=== PATIENT | female | born 1955 | race Caucasian/White ===

== ENCOUNTER 2020-03-10 02:29 | Outpatient (CLI) | payer MEDICARE, OTHER, SELFPAY ==
[2020-03-10 19:16] LABS: SARS-CoV-2 RNA PCR Negative
== END 2020-03-10 02:30 | disposition home or self-care (01) ==
LOC: ANHCOVIDDT 02:31
PROVIDERS: Visit Provider Obstetrics & Gynecology
DX: Z01.818 Encounter for other preprocedural examination (principal); Z20.828 Contact with and (suspected) exposure to other viral communicable diseases
CPT/HCPCS: 36415; 85014; 85018; 87635; C9803; U0003

== ENCOUNTER 2020-03-10 11:33 | Outpatient (CLI) | payer MEDICARE, OTHER, SELFPAY ==
[2020-03-10 11:59] LABS: Hematocrit 41.4 % (37.0-47.0); Hemoglobin 14.6 g/dL (12.0-15.0)
== END 2020-03-10 11:34 | disposition home or self-care (01) ==
PROVIDERS: Visit Provider Obstetrics & Gynecology
DX: Z01.818 Encounter for other preprocedural examination (principal); N95.0 Postmenopausal bleeding
CPT/HCPCS: 36415; 85014; 85018

== ENCOUNTER 2020-03-13 01:22 | Day surgery (SDC) | payer MEDICARE, OTHER, SELFPAY ==
[2020-03-09 13:14] VITALS: BMI 35.6
--- NOTE | 2020-03-11 10:12 | PM.IMHP ---
H&P: HPI History of Present Illness Date/Time: 03/11/20 10:12 Chief complaint: post menopausal bleeding Narrative: Rosetta Perez is a 65 year old female of the 65-year-old female admitted for hysteroscopy and dilatation and curettage. Karlee of the postmenopausal bleeding. She underwent ultrasound which showed small uterus with a was anterior fundal mass consistent with fibroid. There was some small fluid seen in the endometrial canal and she is thus a for pathologic diagnosis diagnosis. Risks and benefits were reviewed Review of Systems Review of Systems: All systems reviewed & are unremarkable except as noted in HPI and below PMFSH Social History Social History Smoking packs per day: 1 Smoking cigarettes per day: 20.0 Years smoked: 40 Smoking pack-years: 40.00 Smoking status: Former smoker Tobacco type: cigarettes Smoking end date: 04/10/13 Alcohol intake: current Drinks per week: 2 Substance use: current Substance use type: marijuana Other substance usage details: MARIJUANA ONCE A MONTH Spiritual care concerns: No Meds Home Medications and Allergies Home Medications Medication Instructions Recorded Confirmed Type alprazolam 0.25 mg PO PRN PRN 03/09/20 03/09/20 History cholecalciferol (vitamin D3) 125 mcg PO DAILY 03/09/20 03/09/20 History fluoxetine 20 mg PO QAM 03/09/20 03/09/20 History levothyroxine 50 mcg PO QAM 03/09/20 03/09/20 History melatonin 10 mg PO HS PRN 03/09/20 03/09/20 History metoprolol tartrate 50 mg PO BID 03/09/20 03/09/20 History olmesartan 20 mg PO QPM 03/09/20 03/09/20 History omeprazole 20 mg PO QAM 03/09/20 03/09/20 History rosuvastatin 10 mg PO QAM 03/09/20 03/09/20 History turmeric 2,000 mg PO QAM 03/09/20 03/09/20 History Allergies Allergy/AdvReac Type Severity Reaction Status Date / Time Penicillins Allergy Hives Verified 03/09/20 12:55 Exam Const: General: no acute distress Eyes: General: appearance normal, both eyes and all related structures Neck: Neck: supple and no JVD Thyroid: thyroid normal Resp: Effort & Inspection: normal respiratory effort Auscultation: clear to auscultation bilaterally Cardio: Rate: regular rate Rhythm: regular rhythm GI: Inspection: non-distended GI Palp: Yes Soft to palpation, No Tenderness to palpation present (GI) and No Guarding due to palpation present (GI) Auscultation: normal bowel sounds : General: Yes bladder normal to palpation External Female Exam: normal external appearance Speculum Exam - Vagina: normal vaginal discharge and No vaginal bleeding Speculum Exam - Cervix: nontender Bimanual exam- vagina & uterus: bladder normal to palpation and No Cervical tenderness present OB/external & speculum: No vaginal bleeding Skin: General skin exam: no rashes or lesions noted Extrem: General: normal to inspection and no edema Psych: Mental Status: mental status grossly normal Affect: normal affect Assessment and Plan Additional Plan No impression: Postmenopausal bleeding Plan: Hysteroscopy/ dilatation and curettage
--- NOTE | 2020-03-13 11:03 | WPDHPUPDATE1 ---
History and Physical Update Update Date/Time: 03/13/20 11:03 History and Physical has been reviewed, including an updated exam of the patient. There are NO changes in the patient's condition. Risks, benefits, and alternatives have been discussed and questions answered. Patient agrees to proceed with procedure.
[2020-03-13 11:40] VITALS: BP 150/89; PULSE 58; RESP 16; TEMP 36.3; O2SAT 99
[2020-03-13] MEDS: ACETAMINOPHEN 500 MG TABLET 1000 MG PO (11:45)
--- NOTE | 2020-03-13 12:01 | P.PNAN_ITS ---
Anes - Initial Pre Proc Eval Procedure: Operation Date: 03/13/20 13:30 Proposed Procedures p Hysteroscopy Dilation and Curettage - Aidan Buck MD Date/Time: 03/13/20 12:01 Surgeon: Aidan Buck MD Pre Op Diagnosis: post menopausal bleeding Patient Data Age: 65 Gender: F Height: 5 ft 2 in Weight: 88.8 kg Allergies Allergy/AdvReac Type Severity Reaction Status Date / Time Penicillins Allergy Hives Verified 03/09/20 12:55 Home Medications Medication Instructions Recorded Confirmed Type alprazolam 0.25 mg PO PRN PRN 03/09/20 03/09/20 History cholecalciferol (vitamin D3) 125 mcg PO DAILY 03/09/20 03/09/20 History fluoxetine 20 mg PO QAM 03/09/20 03/09/20 History levothyroxine 50 mcg PO QAM 03/09/20 03/09/20 History melatonin 10 mg PO HS PRN 03/09/20 03/09/20 History metoprolol tartrate 50 mg PO BID 03/09/20 03/09/20 History olmesartan 20 mg PO QPM 03/09/20 03/09/20 History omeprazole 20 mg PO QAM 03/09/20 03/09/20 History rosuvastatin 10 mg PO QAM 03/09/20 03/09/20 History turmeric 2,000 mg PO QAM 03/09/20 03/09/20 History hydrocodone-acetaminophen [Pierre Part] 1 tablet PO Q4H PRN #20 tablet 03/13/20 Rx Patient hx anesthesia problems: none Family hx anesthesia problems: none PMFSH Past Medical History Medical History Anxiety GERD (gastroesophageal reflux disease) Hyperlipidemia Hypertension Hypothyroid Social History Social History Smoking packs per day: 1 Smoking cigarettes per day: 20.0 Years smoked: 40 Smoking pack-years: 40.00 Smoking status: Former smoker Tobacco type: cigarettes Smoking end date: 04/10/13 Alcohol intake: current Drinks per week: 2 Substance use: current Substance use type: marijuana Other substance usage details: MARIJUANA ONCE A MONTH Living arrangements: with family Spiritual care concerns: No Anes - Eval Final PreProcedure Day of Procedure 03/13/20 12:01 Patient weight: obese Heart: regular rate and rhythm Lungs: decreased breath sounds Airway: Mallampati scale class II Neurological: alert and oriented Last oral intake: >/= 8 hours ASA classification: III Emergent: no Anesthetic plan: proceed Anesthesia type and monitoring: general GIVS and standard monitoring Informed Consent: The patient's anesthetic plan and its attendant risks and benefits were discussed with the patient/family/POA. Questions were solicited and answers provided to the satisfaction of the patient/family/POA.
[2020-03-13] MEDS: LACTATED RINGERS 1,000 ML 30 ML IV CONT (12:02)
[2020-03-13] MEDS: LIDOCAINE HCL 1% LOCAL INJ 10 ML VIAL INFILTRATE (13:41)
--- NOTE | 2020-03-13 13:56 | PM.PROC ---
Procedure Note - Detailed Date of procedure: 03/13/20 Pre-op diagnosis: post menopausal bleeding Surgeon: Aidan Buck MD Postop diagnosis: Postmenopausal bleeding/endometrial polyp Procedure: Hysteroscopy/dilatation curettage/polypectomy Anesthesia: L and a EBL: 5cc Findings: Small uterine polyp Complications: None Description of procedure: The patient was prepped draped in the normal sterile fashion placed in the dorsal lithotomy position. Under excellent LMA Anesthesia anterior lip of the cervix grasped with single-tooth tenaculum. Uterus sounded to 8cm. Serial dilatation with fragmented dilators performed followed by passage of the 5mm visualizing hysteroscope using normal saline as visualizing medium. A uterine polyp was seen and this was removed piecemeal. The uterus was scraped over the entire 360?. When no further tissue could be removed instruments were removed. All sponge, needle, instrument counts were correct. There were no immediate complications patient tolerated the procedure well
[2020-03-13 14:00] VITALS: BP 146/72; PULSE 62; RESP 14; O2SAT 93
--- NOTE | 2020-03-13 14:10 | SUR.OPER ---
Local on field and not injected as per Dr Peterson
[2020-03-13 14:30] VITALS: BP 166/72; PULSE 62; RESP 16; O2SAT 97
[2020-03-13 14:58] VITALS: BP 141/87; PULSE 58; RESP 17; O2SAT 97
[2020-03-13 15:20] VITALS: BP 158/78; PULSE 55; RESP 16; O2SAT 98
== END 2020-03-13 15:30 | disposition home or self-care (01) ==
PROVIDERS: Visit Provider Obstetrics & Gynecology
PROC: 0U5B8ZZ Destruction of Endometrium, Via Natural or Artificial Opening Endoscopic (ICD-10-PCS; CPT 58563; principal; 2020-03-13 13:30)
DX: N95.0 Postmenopausal bleeding (principal); N84.0 Polyp of corpus uteri; I10 Essential (primary) hypertension; E78.5 Hyperlipidemia, unspecified; E03.9 Hypothyroidism, unspecified; K21.9 Gastro-esophageal reflux disease without esophagitis; F41.9 Anxiety disorder, unspecified; Z87.891 Personal history of nicotine dependence; F12.90 Cannabis use, unspecified, uncomplicated; E66.9 Obesity, unspecified; Z68.35 Body mass index [BMI] 35.0-35.9, adult
CPT/HCPCS: 58558; 88305; 88342; A9270; J2250; J2405; J2704; J3010; J7030; J7120

== ENCOUNTER 2021-07-07 15:43 | Outpatient (CLI) | payer MEDICARE, OTHER, SELFPAY ==
--- NOTE | ~2021-07-07 | MM_ITS ---
EXAMINATION: MM screening [facility] BI w bailey HISTORY: Screening mammogram TECHNIQUE: Craniocaudal and mediolateral oblique 3-D tomosynthesis images were obtained and synthetic 2-D images were generated. CAD analysis was submitted and interpreted. COMPARISON: 12/12/2018 BREAST PARENCHYMAL COMPOSITION: There are scattered areas of fibroglandular density. FINDINGS: RIGHT BREAST: There is a possible mass in the middle third of the upper inner breast. LEFT BREAST: There is no suspicious mass, calcification, or architectural distortion to suggest malig marty. There has been no significant interval change. IMPRESSION: 1. Possible right breast mass. 2. Additional mammographic views and possible breast ultrasound are recommended. BI-RADS Category 0: Incomplete: Needs additional imaging evaluation. Reviewed, dictated and finalized at location A. IMPRESSION: 1. Possible right breast mass. 2. Additional mammographic views and possible breast ultrasound are recommended . BI-RADS Category 0: Incomplete: Needs additional imaging evaluation.
== END 2021-07-07 15:44 | disposition home or self-care (01) ==
LOC: ANHIMG 15:44
PROVIDERS: Visit Provider Obstetrics & Gynecology
DX: Z12.31 Encounter for screening mammogram for malignant neoplasm of breast (principal); R92.8 Other abnormal and inconclusive findings on diagnostic imaging of breast
CPT/HCPCS: 77063; 77067

== ENCOUNTER 2021-07-15 12:08 | Outpatient (CLI) | payer MEDICARE, OTHER, SELFPAY ==
--- NOTE | ~2021-07-15 | MMUS_ITS ---
EXAMINATION: MM diagnostic [facility] RT w bailey, US breast RT limited HISTORY: Follow-up right breast asymmetry TECHNIQUE: Additional 3-D tomosynthesis images of the right breast were performed and synthetic 2-D i mages were generated. CAD analysis was submitted and interpreted. High resolution Limited right breas t ultrasound was performed. COMPARISON: 07/07/2021 BREAST PARENCHYMAL COMPOSITION: Breast composed of scattered areas of fibroglandular density. FINDINGS: MAMMOGRAPHIC FINDINGS: Focal asymmetries in the upper inner quadrant of the right breast are less apparent with spot jaqueline kate views. No discrete mass or architectural distortion. No suspicious cluster of calcifications. ULTRASOUND: Limited right breast ultrasound: At 12:00 near the nipple there is a 3 mm cyst. At 12:00 near the nip ple there is a second 2 mm cyst. At 2:00, 6 cm from the nipple, there is an oval hyperechoic mass quinn suring 1.9 cm greatest dimension with internal cystic change, likely benign. There is parallel orient ation, no significant posterior features. IMPRESSION: 1. Probable benign findings of the right breast. 2. Recommend 6 month follow-up diagnostic right mammogram and ultrasound BI-RADS category 3, probably benign findings. Reviewed, dictated and finalized at location A. IMPRESSION: 1. Probable benign findings of the right breast. 2. Recommend 6 month follow-up diagnostic right mammogram and ultrasound BI-RADS category 3, probably benign findings.
== END 2021-07-15 12:09 | disposition home or self-care (01) ==
PROVIDERS: Visit Provider Obstetrics & Gynecology
DX: R92.8 Other abnormal and inconclusive findings on diagnostic imaging of breast (principal)
CPT/HCPCS: 76642; 77061; 77065; G0279

== ENCOUNTER 2022-02-15 11:48 | Outpatient (CLI) | payer MEDICARE, SELFPAY ==
--- NOTE | ~2022-02-15 | MMUS_ITS ---
EXAMINATION: MM diagnostic [facility] RT w bailey, US breast RT limited HISTORY: Six-month follow-up of probable benign mammographic and ultrasound findings of right breast noted on 07/15/2021 diagnostic right mammogram and limited right breast ultrasound TECHNIQUE: ML, MLO and craniocaudal 3-D tomosynthesis images of the right breast were performed and s ynthetic 2-D images were generated. CAD analysis was submitted and interpreted. High resolution targe angelo 12:00 and 2:00 right breast ultrasound was performed. COMPARISON: 07/15/2021 diagnostic right mammogram and limited right breast ultrasound 07/07/2021 and 12/2018 bilateral screening mammogram examinations BREAST PARENCHYMAL COMPOSITION: There are scattered areas of fibroglandular density. FINDINGS: MAMMOGRAPHIC FINDINGS: No suspicious mass or architectural distortion, malignant calcification, skin thickening or retractio n or significant new or developing density is detected. ULTRASOUND: No suspicious mass or shadowing, cyst or other significant sonographic finding is noted at 12:00 or 2 :00 IMPRESSION: 1. No mammographic evidence of malignancy 2. Routine annual mammographic screening is recommended BI-RADS Category 1: Negative Reviewed, dictated and finalized at location A. RS INSPECTOR IMPRESSION: 1. No mammographic evidence of malignancy 2. Routine annual mammographic screening is recommended BI-RADS Category 1: Negative
== END 2022-02-15 11:49 | disposition home or self-care (01) ==
PROVIDERS: Visit Provider Obstetrics & Gynecology
DX: R92.8 Other abnormal and inconclusive findings on diagnostic imaging of breast (principal)
CPT/HCPCS: 76642; 77061; 77065; G0279

== ENCOUNTER 2023-11-18 10:04 | Outpatient (CLI) | payer MEDICARE, SELFPAY ==
--- NOTE | ~2023-11-18 | MM_ITS ---
EXAMINATION: MM screening [facility] BI w bailey HISTORY: Screening TECHNIQUE: Craniocaudal and mediolateral oblique 3-D tomosynthesis images were obtained and synthetic 2-D images were generated. CAD analysis was submitted and interpreted. COMPARISON: Comparison to multiple prior studies sequentially, with oldest reviewed study dated 07/2018. BREAST PARENCHYMAL COMPOSITION: Not dense: There are scattered areas of fibroglandular density. FINDINGS: There is no evidence of suspicious mass, calcification, or architectural distortion to sugg est malignancy in either breast. There has been no suspicious interval change. IMPRESSION: 1. No mammographic evidence of malignancy. 2. Recommend routine screening mammography in one year. BI-RADS Category 1: Negative Reviewed, dictated and finalized at location B.
== END 2023-11-18 10:05 | disposition home or self-care (01) ==
PROVIDERS: PCP Physician Assistant; Visit Provider Obstetrics & Gynecology
DX: Z12.31 Encounter for screening mammogram for malignant neoplasm of breast (principal)
CPT/HCPCS: 77063; 77067

== ENCOUNTER 2024-03-12 12:36 | Outpatient (CLI) | payer MEDICARE, SELFPAY ==
--- NOTE | ~2024-03-12 | CT_ITS ---
EXAMINATION: CT lung screening DATE: 03/12/2024 13:04 INDICATION: Z87.891 - Personal history of nicotine dependence TECHNIQUE: Computed tomography (CT) of the chest was performed without intravenous contrast. Addition al 3D reconstructions utilizing coronal maximum intensity projection (MIP) were performed. Automated exposure control and iterative reconstruction technique were employed. The dose-length product was 16 3.92 mGy-cm. COMPARISON: None FINDINGS: Mild emphysema with mild right apical pleural-parenchymal scarring. There is a part solid nodule with 6 mm solid component and small amount of surrounding groundglass opacity measuring up to 1.2 cm in d iameter at the junction of the superior and anterior basilar segments of the right lower lobe. There is an additional 4 mm nodule with some adjacent groundglass opacity in the right upper lobe. There ar e a few additional scattered <4 mm nodules in both lungs. No pulmonary edema, pleural effusion or pne umothorax. Heart size is normal. No pericardial effusion. Thoracic aorta is normal in caliber. 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 No pathologically enlarged thoracic lympha denopathy. Visualized upper abdomen is unremarkable. Moderate to severe thoracic spondylosis. IMPRESSION: 1. Lung-RADS category 4A: (Suspicious, 5-15% chance of malignancy) recommend 3 month follow-up low-do se noncontrast chest CT. Reviewed, dictated and finalized at location A. LOGIST IMPRESSION: 1. Lung-RADS category 4A: (Suspicious, 5-15% chance of malignancy) recommend 3 month follow-up low-dose noncontrast chest CT.
== END 2024-03-12 12:37 | disposition home or self-care (01) ==
PROVIDERS: PCP Internal Medicine; Visit Provider Nurse Practitioner Family
DX: Z12.2 Encounter for screening for malignant neoplasm of respiratory organs (principal); Z87.891 Personal history of nicotine dependence; R91.8 Other nonspecific abnormal finding of lung field
CPT/HCPCS: 71271

== ENCOUNTER 2024-03-30 07:46 | Outpatient (CLI) | payer MEDICARE, SELFPAY ==
--- NOTE | ~2024-03-30 | MR_ITS ---
EXAMINATION: MR shoulder LT wo con DATE: 03/30/2024 08:48 INDICATION: Pain in left shoulder. TECHNIQUE: Magnetic resonance imaging (MRI) of the left shoulder was performed without intravenous co ntrast. Sequences included axial PD-weighted FS FSE, coronal oblique PD-weighted FS FSE and T2-weight ed FS FSE, and sagittal oblique T2-weighted FS FSE and T1-weighted FSE. COMPARISON: None. FINDINGS: Coracoacromial arch: The acromion undersurface is curved in morphology (type II). There is moderate acromioclavicular join t osteoarthritis including inferiorly directed osteophytes. There is mild subacromial/subdeltoid burs itis. Rotator cuff: There is mild supraspinatus and infraspinatus tendinopathy. There is mild teres minor tendinopathy. S ubscapularis tendon is normal. There is no asymmetric fatty atrophy of the rotator cuff muscle bellie s. Biceps tendon and glenoid labrum: Biceps tendon is in bicipital groove. Intra-articular biceps tendon is normal. There is degenerative tearing of the glenoid labrum. There are small paralabral cysts posterosuperiorly. Fluid: There is a small glenohumeral joint effusion. Bones/cartilage: There is partial-thickness cartilage loss of humeral head, deep at the posterior articular surface. T here is full-thickness cartilage loss of glenoid involving the central articular surface. Osteophytes are noted. There is a subchondral cyst in posterior glenoid. IMPRESSION: 1. Severe glenohumeral joint chondrosis. 2. Moderate acromioclavicular joint osteophytes. 3. Mild rotator cuff tendinopathy. No tear. 4. Small glenohumeral joint effusion. 5. Mild subacromial/subdeltoid bursitis. Reviewed, dictated and finalized at location A. LANCE RECRUITER
--- OUTSIDE RECORDS SUMMARY | 2024-04-06 05:23 | XMS_ITS | Referral Summary ---
Author Organization [facility] Address [address] [place] [address] Care Team Providers Care Program Evaluator Name Role Phone Unavailable Primary Care Provider Unavailabl e Source Comments [facility],non-owned Affiliates and Associated Physician Practices is amultiple site organization consisting of ambulatory clinics and hospital sitesin [place], [place], [place] and [place]. This disclosure is being madepursuant to the Care Everywhere program and may not contain all information available regarding this patient. Last updated 17.[facility] [employer] Social History Tobacco Use Types Packs/Day Years Used Date Smoking Tobacco: Never Assessed Sex and Gender Information Value Date Recorded Sex Assigned at Not on file Gender Identity Not on file Sexual Orientation Not on file Plan of Treatment Not on file
--- OUTSIDE RECORDS SUMMARY | 2024-04-06 05:23 | XMS_ITS | Continuity of Care Document ---
Author Organization [facility] Address [address] [place] [id number] Care Team Providers Care Behavioral Health Case Manager Name Role Phone Lisa Vazquez Primary Care Physician Encounter [facility] Financial Number [id number] Date(s): 01/11/21 - 01/11/[address] [id number] Discharge Disposition: Home or Self Care Attending Physician: Casimiro Wong DO Referring Physician: Lisa Vazquez MD Problem List Diagnosis Diagnosis Type Effective Dates Health Status Clinical Service Informant Encounter for other preprocedural examination 01/11/21 Non-Specified Encounter for other preprocedural examination 01/11/21 Non-Specified Results Laboratory List Name Date Basic Metabolic Profile 01/11/21 CBC without Differential 01/11/21 Most recent to oldest [Reference Range]: 1 BUN [7-17 mg/dL] 18 mg/dL *H* (01/11/21 2:24 PM) Calcium [8.4-10.2 mg/dL] 9.2 mg/dL (01/11/21 2:24 PM) Chloride [98-107 mmol/L] 101 mmol/L (01/11/21 2:24 PM) CO2 [22-30 mmol/L] 32 mmol/L *H* (01/11/21 2:24 PM) Glucose [74-106 mg/dL] 116 mg/dL *H* (01/11/21 2:24 PM) Potassium [3.5-4.9 mmol/L] 4.0 mmol/L (01/11/21 2:24 PM) Sodium [137-145 mmol/L] 140 mmol/L (01/11/21 2:24 PM) Hematocrit [36.0-54.0 %] 38.0 % (01/11/21 2:24 PM) MCHC [32-37 g/dL] 35 g/dL (01/11/21 2:24 PM) MCH [28.0-34.0 pg] 33.2 pg (01/11/21 2:24 PM) MCV [80.0-100.0 fL] 94.3 fL (01/11/21 2:24 PM) MPV [0.0-9.0 fL] 7.4 fL (01/11/21 2:24 PM) Platelet [150-440 x10E3/uL] 261 x10E3/uL (01/11/21 2:24 PM) RBC [4.00-6.00 x10E6/uL] 4.03 x10E6/uL (01/11/21 2:24 PM) RDW [11.5-16.0 %] 12.5 % (01/11/21 2:24 PM) WBC [4.0-11.0 x10E3/uL] 4.9 x10E3/uL (01/11/21 2:24 PM) Creatinine [0.5-1.0 mg/dL] 0.8 mg/dL (01/11/21 2:24 PM) Hemoglobin [12.0-18.0 g/dL] 13.4 g/dL (01/11/21 2:24 PM) eGFR(4vMDRD) [>=60 mL/min/1.73m2] >60 mL /min/1.73m2 (01/11/21 2:24 PM) eCrCl(C-Gault) 1.1 mL/min/kg (01/11/21 2:24 PM) Anion Gap [7-16 mmol/L] 7 mmol/L (01/11/21 2:24 PM)
--- OUTSIDE RECORDS SUMMARY | 2024-04-06 05:23 | XMS_ITS | Patient Health Summary ---
Author Organization [facility] Address [address] [place] [address] Care Team Providers Care Spark Plug Assembler Name Role Phone Unavailable Primary Care Provider Unavailabl e Note from [facility],non-owned Affiliates and Associated Physician Practices is amultiple site organization consisting of ambulatory clinics and hospital sitesin [place], [place], [place] and [place]. This disclosure is being madepursuant to the Care Everywhere program and may not contain all information available regarding this patient. Last updated 17.[facility] Social History Tobacco Use Types Packs/Day Years Used Date Smoking Tobacco: Never Assessed Sex and Gender Information Value Date Recorded Sex Assigned at Not on file Gender Identity Not on file Sexual Orientation Not on file Procedures * DERMATOPATHOLOGY(Performed 08/25/2020) Results * DERMATOPATHOLOGY (08/25/2020 3:33 AM CDT) Case Report Dermatopathology Report ? Case: [id number] ? Authorizing Provider: ??Freya Rosa MD ? Collected: ? 08/25/2020 03:33 AM ? Ordering Location: ? [facility] Care DermPath Lab ?Received: ?08/27/2020 06:08 AM ? Pathologist: ? Rissa Chavis MD ? Specimen: ?Skin, right judaism ? 4:11 PM T DERMATOPATHOLOGY LABORATORY Final Diagnosis Specimen A. SKIN, right judaism: BENIGN VERRUCOUS KERATOSIS, INFLAMED (L82.1) 4:11 PM T DERMATOPATHOLOGY LABORATORY Clinical History HAK R/O SCC. 4:11 PM T DERMATOPATHOLOGY LABORATORY Gross Description Specimen A: Received is one formalin filled container labeled with the patient's name and designated right judaism. The specimen consists of a shave biopsy measuring [id number]. Jar 0. 4:11 PM T DERMATOPATHOLOGY LABORATORY Microscopic Description Specimen A. SKIN, right judaism: Sections show hyperkeratosis, papillomatosis, hypergranulosis, and acanthosis. Inflammatory cells are present within the dermis. These histological findings can be seen in a verruca vulgaris or a seborrheic keratosis. 4:11 PM T DERMATOPATHOLOGY LABORATORY Disclaimer An external and internal positive and negative controls are appropriate for the histochemical, immunohistochemical and immunofluorescence stain(s) in this case (if any), except where stated explicitly. The performance characteristics of the stain(s) cited in this report were developed and its performance characteristic determined by the Dermatopathology Laboratory at [facility], directed by Dr. Houston Easton. These tests need not be, and therefore are not, approved by the [place] Food and Drug Administration. The tests are used for clinical purposes. Billing Codes Specimen Charges Stain Charges 47072 1 4:11 PM CDT DERMATOPATHOLOGY LABORATORY Embedded Images 4:11 PM T DERMATOPATHOLOGY LABORATORY Pathology/Cytolo gy TISSUE SPECIMEN FROM SKIN / Unknown 08/25/2020 3:33 AM CDT 08/27/2020 6:08 AM CDT Freya Rosa MD LAB - PATHOLOGY/CYTO LOGY ORDERABLES DERMATOPATHOLOGY LABORATORY [facility] - Department of Dermatology [facility] [address] [place] [address], [address] [phone]
--- OUTSIDE RECORDS SUMMARY | 2024-04-06 05:23 | XMS_ITS | Clinical Summary ---
Author Organization [facility] [employer] Address [address] [place] [address] Care Team Providers Care Scraper Burrer Name Role Phone Unavailable Primary Care Provider Unavailabl e Source Comments [facility] [employer],non-owned Affiliates and Associated Physician Practices is amultiple site organization consisting of ambulatory clinics and hospital sitesin [place], [place], [place] and [place]. This disclosure is being madepursuant to the Care Everywhere program and may not contain all information available regarding this patient. Last updated 17.[facility] [employer] Social History Tobacco Use Types Packs/Day Years Used Date Smoking Tobacco: Never Assessed Sex and Gender Information Value Date Recorded Sex Assigned at Not on file Gender Identity Not on file Sexual Orientation Not on file Plan of Treatment Health Maintenance Due Date Last Done Comments BONE DENSITY TESTING 1957 COLOGUARD (AGES 45-75) - COL ON CA SCREENING 1957 COLON MONITORING 1957 COLONOSCOPY - COLON CA SCREENING 1957 CT COLONOGRAPHY - COLON CA SCREENING 1957 Colorectal Cancer Screening 1957 FIT - COLON CA SCREENING 1957 FLEX SIG - COLON CA SCREENING 1957 LIPID TESTING 1957 MAMMOGRAM 1957 MEDICARE AWV ? 12 MONTHS 1957 HEPATITIS C SCREENING 12/30/1974 DTAP/TDAP/TD VACCINES (1 - Tdap) 01/04/1976 ZOSTER VACCINE (1 of 2) 2007 PNEUMOCOCCAL VACCINE 65+ (1 of 1 - PCV) 2022 DEPRESSION SCREENING 04/10/2023 COVID-19 VACCINE (1 - 2023-2 5 season) 2023 INFLUENZA VACCINE (#1) 2023 Respiratory Syncytial Virus (RSV) Vaccine Pt: or over 60 yrs (1 - 1-dose 75+ series) 01/04/2032 HEPATITIS B VACCINE Aged Out No longe r eligible based on patient's age to complete this topic HIB VACCINE Aged Out No longer eligi ble based on patient's age to complete this topic HPV VACCINE Aged Out No longer eligi ble based on patient's age to complete this topic MENINGOCOCCAL VACCINE Aged Out No debi karen eligible based on patient's age to complete this topic
--- OUTSIDE RECORDS SUMMARY | 2024-04-06 05:23 | XMS_ITS | Encounter Summary ---
Author Organization [facility] Address [address] [facility] [place] [address] Care Team Providers Care Wind Turbine Technician Name Role Phone Unavailable Primary Care Provider Unavailabl e Encounter Details Date Type Department Care Team (Late st Contact Info) Description 08/27/2020 Lab Requisition [facility] [address] [place] [address] [place] [id number] [facility] [address] [place] [address] Social History Tobacco Use Types Packs/Day Years Used Date Smoking Tobacco: Never Assessed Sex and Gender Information Value Date Recorded Sex Assigned at Not on file Gender Identity Not on file Sexual Orientation Not on file documented as of this encounter Plan of Treatment Not on file documented as of this encounter Procedures Procedure Name Priority Date/Time Associated Diagnosis Comments DERMATOPATHOLOGY Routine 08/25/2020 3:33 AM CDT documented in this encounter Results * DERMATOPATHOLOGY (08/25/2020 3:33 AM CDT) Case Report Dermatopathology Report ? Case: [id number] ? Authorizing Provider: ??Freya Rosa MD ? Collected: ? 08/25/2020 03:33 AM ? Ordering Location: ? [facility] ?Received: ?08/27/2020 06:08 AM ? Pathologist: ? Rissa Chavis MD ? Specimen: ?Skin, right scientologist ? 4:11 PM [facility] DERMATOPATHOLOGY LABORATORY Final Diagnosis Specimen A. SKIN, right scientologist: BENIGN VERRUCOUS KERATOSIS, INFLAMED (L82.1) 4:11 PM [facility] Clinical History HAK R/O SCC. 4:11 PM [facility] Gross Description Specimen A: Received is one formalin filled container labeled with the patient's name and designated right scientologist. The specimen consists of a shave biopsy measuring [id number]. Jar 0. 4:11 PM [facility] Microscopic Description Specimen A. SKIN, right scientologist: Sections show hyperkeratosis, papillomatosis, hypergranulosis, and acanthosis. [...] characteristic determined by the Dermatopathology Laboratory at [facility], directed by Dr. Houston Easton. These tests need not be, and therefore are not, approved by the [place] Food and Drug Administration. The tests are used for clinical purposes. Billing Codes Specimen Charges Stain Charges 24861 1 1 4:11 PM CDT DERMATOPATHOLOGY LABORATORY Embedded Images 1 4:11 PM CDT DERMATOPATHOLOGY LABORATORY Pathology/Cytolo gy TISSUE SPECIMEN FROM SKIN / Unknown 08/25/2020 3:33 AM CDT 08/27/2020 6:08 AM CDT Freya Rosa MD LAB - PATHOLOGY/CYTO LOGY ORDERABLES DERMATOPATHOLOGY LABORATORY [facility] D[facility]at[facility] Medicine [address] [place] [address], [address] [phone] documented in this encounter Visit Diagnoses Not on filedocumented in this encounter
--- OUTSIDE RECORDS SUMMARY | 2024-04-06 05:24 | XMS_ITS | Continuity of Care Document ---
Author Organization [employer] Address [address] [place] [address] Phone Care Team Providers Care Scrap Yard Worker Name Role Phone Lisa Vazquez MD Unavailable Unavailable Allergies, Adverse Reactions, Alerts Substance Reaction Status Criticality rosuvastatin Myalgias Active No Information simvastatin Myalgias Active No Information PENICILLIN Hives / Skin Rash Active No Informa tion Medications Medication Instructions Dosage Effective Dates (start - stop) Status Comments HYDROCHLOROTHIAZIDE 25 MG TAB TAKE 1/2 TABLET BY MOUTH EVERY EVENING - Active LEVOTHYROXINE 50 MCG TABLET TAKE 1 TABLET BY MOUTH EVERY DAY - Active METOPROLOL TARTRATE 50 MG TAB TAKE 1 TABLET BY MOUTH TWICE A DAY - Active OMEPRAZOLE DR 20 MG CAPSULE TAKE 1 CAPSULE BY MOUTH EVERY DAY - Active OLMESARTAN MEDOXOMIL 20 MG TAB TAKE 1 TABLET BY MOUTH EVERY DAY - Active FLUOXETINE HCL 40 MG CAPSULE TAKE 1 CAPSULE BY MOUTH EVERY DAY IN THE MORNING - Active alprazolam 0.25 mg tablet TAKE ONE TABLE T BY MOUTH DAILY NEEDED - Active Nasal Allergy 55 mcg spray aerosol spray 2 spray by intranasal route every day in each nostril 110 MCG - Active Zyrtec 10 mg tablet take 1 tablet by oral route every day 10 MG - Active melatonin 10 mg capsule as needed - Ac tive Probiotic 10 billion cell capsule - Active cyclobenzaprine 10 mg tablet take 1 tablet by oral route every day as needed for muscle spasm - Active Lactaid 3,000 unit tablet as needed - Active Vitamin D3 2,000 unit capsule take 1 capsule by oral route every evening for 60 days 1 capsule - Active Caltrate 600 + D 600 mg (1,500 mg)-800 unit chewable tablet - Active Procedures Procedure Date FALL RISK ASSESSMENT DOC'D PRES/ABSN URINE INCON ASSESS PPPS, subseq visit OFFICE [id number] BODY MASS INDEX DOCD SYST BP GE 130 - 139MM HG DIAST BP < 80 MM HG Kept Appointment No Charge Encounter August SARS-CoV-2/Flu/RSV (all targets) 2021 COVID, Flu A, Flu B X-RAY EXAM OF THORACIC SPINE, A/P & LAT, INCL SWIMMERS VIEW COMPREHEN METABOLIC PANEL CMP 2 ROUTINE VENIPUNCTURE Admin influenza virus vac FLU VACC PRSV FREE INC ANTIG Pt inelig neg scrn depres OFFICE [id number] BODY MASS INDEX DOCD SYST BP LT 130 MM HG DIAST BP < 80 MM HG OFFICE [id number] FALL RISK ASSESSMENT DOC'D PRES/ABSN URINE INCON ASSESS Pt inelig neg scrn depres CBC, INC PLATELETS AND DIFFERENTIAL COMPREHEN METABOLIC PANEL CMP LIPID PANEL THYROID STIMULATION HORMONE(TSH) 2021 VITAMIN D, 25-HYDROXY URINALYSIS, DIPSTICK (UA) - Office Lab M ROUTINE VENIPUNCTURE OFFICE [id number] SYST BP LT 130 MM HG DIAST BP < 80 MM HG Pt inelig neg scrn deprlucero FALL RISK ASSESSMENT DOC'D PRES/ABSN URINE INCON ASSESS PPPS, initial visit SYST BP LT 130 MM HG DIAST BP < 80 MM HG OFFICE [id number] SYST BP LT 130 MM HG DIAST BP < 80 MM HG OFFICE [id number] SYST BP LT 130 MM HG DIAST BP < 80 MM HG Pt inelig neg scrn nohelia TELEPHONE E&M BY A PHYSICIAN; 02-27 TRACIE JAMES TELEPHONE E&M SERVICE BY A PHYSICIAN;5-1 0 MINUTES OF MEDICAL DISCUSSION Brief Emotional/Behavioral A ssessment, With Scoring/Doct, Per Stndrd Instrument Depression screen annual Pt inelig neg scrn deprlucero OFFICE [id number] SYST BP LT 130 MM HG DIAST BP < 80 MM HG TELEPHONE E&M BY A PHYSICIAN; 02-27 TRACIE JAMES SYST BP LT 130 MM HG DIAST BP < 80 MM HG TELEPHONE E&M BY A PHYSICIAN; 02-27 TRACIE JAMES SYST BP >= 140 MM HG6 IT DIAST BP 80-89 MM HG Pt inelig neg scrn depres OFFICE [id number] SYST BP >= 140 MM HG6 IT DIAST BP >= 90 MM HG Admin influenza virus vac FLU VACC 4 GRAHAM 0.5mL DOSAGE OFFICE [id number] SYST BP GE 130 - 139MM HG DIAST BP < 80 MM HG OFFICE [id number] SYST BP >= 140 MM HG6 IT DIAST BP >= 90 MM HG EKG (ELECTROCARDIOGRAM) Pt inelig neg scrn depres COMPREHEN METABOLIC PANEL CMP 0 RHEUMATOID FACTOR: QN RBC SED RATE, AUTOMATED ROUTINE VENIPUNCTURE OFFICE [id number] SYST BP GE 130 - 139MM HG DIAST BP 80-89 MM HG Pt inelig neg scrn depres THYROID STIMULATION HORMONE(TSH) 2018 ROUTINE VENIPUNCTURE DESTRUCT BENIGN LESIONS OTHE R THAN SKIN TAGS OR CUTANEOUS VASCULAR LESIONS UP TO OFFICE [id number] SYST BP GE 130 - 139MM HG DIAST BP 80-89 MM HG Advance Directives Directive Yes / No Effective Date File Name No Information Encounters Encounter Description Practice Location Reason(s) For Visit Diagnoses Date Provider Providers Copied on Encounter [employer], [id number] [place] [address], [address] [place] [address] , tel: [phone] [facility] No Information 4 Taylor Lisa. [address] [place] [address], [id number] , . tel: [phone] [employer], [address], [place], [address] , tel: [phone] [facility] No Information 0 3 Taylor Lisa. [address], [id number] , [place]. tel: [phone] [employer], [address] [place] [address], [id number] , tel: [phone] [facility] No Information Nov0 3 Taylor Lisa. [address], [id number] , . tel: [phone] [employer], [address], [place], [place], [address] , tel: [phone] [facility] No Information 4 3 Taylor Lisa. [address] [place] [address], [id number] , . tel: [phone] [employer], [address], [place], [place], [address] , tel: [phone] [facility] No Information 2 3 Taylor Lisa. [address] [place] [address], [id number] , . tel: [phone] [employer], [address] [facility], [place], [place], [id number] , tel: [phone] [facility] No Information 3 Taylor Lisa. [address] [place] [address], [address] [place] [address] , . tel: [phone] [employer], [address] [facility], [place], [place], [id number] , tel: [phone] [facility] No Information 0 - 3 Taylor Lisa. [address] [place] [address], [id number] , . tel: [phone] [employer], [address] [facility], [place], [place], [address] , tel: [phone] [facility] No Information 0 2 3 Taylor Lisa. [address] [place] [address], [id number] , . tel: [phone] OFFICE CVUMK-OXE-VS TAILED [employer], [address] [facility], [place], [place], [address] , tel: [phone] [facility] HPI (chief complaint)M edicare preventive (chief complaint) Body mass index [BMI] 35.0-35.9, adultHyperlipidemi a, unspecified hyperlipidemia typeHypothyroidism , unspecified typeOSA (obstructive sleep apnea)Primary osteoarthritis, unspecified siteParoxysmal SVT (supraventricular tachycardia)Gastro esophageal reflux disease without esophagitisOsteope macy, unspecified locationEssential hypertensionAnxiet yHypovitaminosis DIrritable bowel syndrome with both constipation and diarrheaMedicare annual wellness visit, subsequentObesity (BMI 30-39.9)History of colon polyps 3 Taylor Gonzalez. [address] [place] [address], [address] [place] [address] , . tel: [phone] Referring Provider: Lisa Vazquez, [address] [place] [address], [address] [place] [address] . tel:[phone] [facility] [employer], [address] [place] [address], [address] [place] [address] , tel: [phone] [facility] No Information 3 Taylor Gonzalez. [address] [place] [address], [address] [place] [address] , . tel: [phone] [employer], [address], [place], [id number] , tel: [phone] [facility] No Information 2 Taylor Gonzalez. [address] [place] [address], [address], [address] [place] [address] , . tel: [phone] Referring Provider: Lisa Vazquez, [address] [place] [address], [address] [place] [address] . tel:[phone] [employer], [address] [place] [address], [id number] , tel: [phone] [facility] Acute cough 2 Taylor Gonzalez. [address] [place] [address], [address] [place] [address] , . tel: [phone] Referring Provider: Lisa Vazquez, [address] [place] [address], [address] [place] [address] . tel:[phone] [facility], [address], [place], [place], [id number] , tel: [phone] [facility] No Information 2 Taylor Gonzalez. [address] [facility], [address], [id number] , . tel: [phone] [facility], [address], [place], [place], [address] , tel: [phone] [facility] Dorsalgia, unspecifiedEssenti al (primary) hypertension 2 Taylor Gonzalez. [address] [place] [address], [address], [id number] , . tel: [phone] Referring Provider: Lisa Vazquez, [address] [place] [address], [address] . tel:[phone] OFFICE IQBKZ-QID-OV TAILED [facility], [address], [place], [place], [address] , tel: [phone] [facility] hpi (chief complaint) Chronic upper back painOther chronic painEssential hypertensionHyperl ipidemia, unspecified hyperlipidemia typeLeg crampsAnxietyGastr oesophageal reflux disease without esophagitisOsteope macy, unspecified locationParoxysmal SVT (supraventricular tachycardia)Hypoth yroidism, unspecified typeObesity (BMI 30-39.9)Primary osteoarthritis, unspecified siteOSA (obstructive sleep apnea)Body mass index [BMI] 36.0-36.9, adult 2 Taylor Gonzalez. [address] [place] [address], [address], [id number] , . tel: [phone] Referring Provider: Lisa Vazquez, [address] [place] [address], [address] . tel:[phone] OFFICE WBHHS-QEI-XT PANDED [facility], [address] [place] [address], [id number] , tel: [phone] [facility] (chief complaint) Body mass index [BMI] 35.0-35.9, adultAnxietyEssent ial hypertensionGastro esophageal reflux disease without esophagitisPrimary osteoarthritis, unspecified site 2 Taylor Gonzalez. [address] [place] [address], [address], [id number] , . tel: [phone] Referring Provider: Lisa Vazquez, [address] [place] [address], [address] . tel:[phone] [facility] [employer], [address], [place], [place], [address] , [place] tel: [phone] [facility] No Information 2 Taylor Gonzalez. [address] [place] [address], [address], [id number] , . tel: [phone] OFFICE LWQDN-GOT-RJ TAILED [facility], [address] [place] [address], [id number] , tel: [phone] [facility] hpi (chief complaint) Body mass index [BMI] 35.0-35.9, adultEssential hypertensionHyperl ipidemia, unspecified hyperlipidemia typeHypovitaminosi s DHypothyroidism, unspecified typeObesity (BMI 30-39.9)AnxietyOSA (obstructive sleep apnea)Gastroesopha geal reflux disease without esophagitisPrimary osteoarthritis, unspecified siteIrritable bowel syndrome with both constipation and diarrheaOsteopenia , unspecified locationParoxysmal SVT (supraventricular tachycardia)Histor y of colon polyps 2 Taylor Gonzalez. [address] [place] [address], [address], [id number] , [place]. tel: [phone] Referring Provider: Lisa Vazquez, [address] [place] [address], [address] . tel:[phone] [employer], [address], [place], [place], [address] , tel: [phone] [facility] Medicare preventive (chief complaint)M edical management (chief complaint) Body mass index [BMI] 37.0-37.9, adultMedicare annual wellness visit, initialHypothyroid ism, unspecified typeHyperlipidemia , unspecified hyperlipidemia typeAnxietyOSA (obstructive sleep apnea)Essential hypertensionGastro esophageal reflux disease without esophagitisObesity (BMI 30-39.9)Primary osteoarthritis, unspecified site 1 Taylor Gonzalez. [address] [place] [address], [address], [id number] , . tel: [phone] Referring Provider: Lisa Vazquez, [address] [place] [address], [address] . tel:[phone] OFFICE RXGDG-HUU-EK [facility], [address], [place], [place], [address] , tel: [phone] [facility] Medical Management (chief complaint) Body mass index [BMI] 36.0-36.9, adultPre-operative clearanceChronic pain of right kneeOther chronic painHypothyroidism , unspecified typeObesity (BMI 30-39.9)Hyperlipid emia, unspecified hyperlipidemia typeAnxietyEssenti al hypertensionOSA (obstructive sleep apnea)Gastroesopha geal reflux disease without esophagitis 1 Taylor Gonzalez. [address] [place] [address], [address], [id number] , . tel: [phone] Referring Provider: Lisa Vazquez, [address] [place] [address], [address] . tel:[phone] [employer], [address], [place], [place], [address] , tel: [phone] [facility] No Information 1 Taylor Gonzalez. [address] [place] [address], [address], [id number] , . tel: [phone] OFFICE VAXVH-WDR-UR [facility] [employer], [address], [place], [place], [address] , tel: [phone] [facility] Medical Management (chief complaint) Body mass index (BMI) 35.0-35.9, adultEssential hypertensionHyperl ipidemia, unspecified hyperlipidemia typeGastroesophage al reflux disease without esophagitisIrritab le bowel syndrome with both constipation and diarrheaPrimary osteoarthritis, unspecified siteHypothyroidism , unspecified typeAnxietyOSA (obstructive sleep apnea)Obesity (BMI 30-39.9) 1 Taylor Gonzalez. [address] [place] [address], [address], [id number] , . tel:[phone] Referring Provider: Lisa Vazquez, [address] [place] [address], [address] . tel:[phone] TELEPHONE E&M BY A PHYSICIAN; 11-20 MINUTES [employer], [address], [place], [address] , tel:[phone] [facility] (chief complaint) Body mass index (BMI) 36.0-36.9, adultEssential hypertensionObesit y (BMI 30-39.9)Hyperlipid emia, unspecified hyperlipidemia typeAnxietyGastroe sophageal reflux disease without esophagitisIrritab le bowel syndrome with both constipation and diarrheaPrimary osteoarthritis, unspecified siteSnoring 1 Taylor Gonzalez. [address] [place] [address], [address], [id number] , . tel:[phone] Referring Provider: Lisa Vazquez, [address] [place] [address], [address] . tel:[phone] TELEPHONE E&M SERVICE BY A PHYSICIAN;5- 10 MINUTES OF MEDICAL DISCUSSION [employer], [address], [place], [place], [address] , tel:[phone] [facility] (chief complaint) Body mass index (BMI) 36.0-36.9, adultDiarrhea, unspecified typeEssential hypertension 1 Taylor Gonzalez. [address] [place] [address], [address], [id number] , . tel:[phone] Referring Provider: Lisa Vazquez, [address] [place] [address], [address] . tel:[phone] OFFICE [facility]VB[facility]SYM[facility], [address], [place], [place], [address] , tel: [phone] [facility] Medical Management (chief complaint) Body mass index (BMI) 36.0-36.9, adultEssential hypertensionHyperl ipidemia, unspecified hyperlipidemia typeObesity (BMI 30-39.9)AnxietyHyp ovitaminosis DHypothyroidism, unspecified typeParoxysmal SVT (supraventricular tachycardia)Gastro esophageal reflux disease without esophagitisIrritab le bowel syndrome with both constipation and diarrheaOsteopenia , unspecified locationPrimary osteoarthritis, unspecified siteSnoring 1 Taylor Gonzalez. [address] [place] [address], [address], [id number] , . tel:[phone] Referring Provider: Lisa Vazquez, [address] [place] [address], [address] . tel:[phone] TELEPHONE E&M BY A PHYSICIAN; 11-20 MINUTES [employer], [address], [place], [place], [address] , tel: [phone] [facility] (chief complaint) Body mass index (BMI) 36.0-36.9, adultEssential hypertensionObesit y (BMI 30-39.9) 1 Taylor Gonzalez. [address] [facility], [address], [id number] , . tel:[phone] Referring Provider: Lisa Vazquez, [address] [place] [address], [address] . tel:[phone] TELEPHONE E&M BY A PHYSICIAN; 11-20 MINUTES [facility] [employer], [address], [place], [place], [address] , tel:[phone] [facility] Telehealth (chief complaint) Body mass index (BMI) 36.0-36.9, adultEssential hypertensionAnxiet yDizzinessObesity (BMI 30-39.9) 1 Taylor Gonzalez. [address] [place] [address], [id number] , . tel: [phone] Referring Provider: Lisa Vazquez, [address] [place] [address], [address] . tel:[phone] OFFICE QHTIV-KCH-SRUP[facility], [address] [place] [address], [id number] , tel: [phone] [facility] Medical Management (chief complaint) Body mass index (BMI) 36.0-36.9, adultHypothyroidis m, unspecified typeHypovitaminosi s DObesity (BMI 30-39.9)Hyperlipid emia, unspecified hyperlipidemia typeAnxietyEssenti al hypertensionParoxy smal SVT (supraventricular tachycardia)Gastro esophageal reflux disease without esophagitisIrritab le bowel syndrome with both constipation and diarrheaOsteopenia , unspecified locationHistory of colon polypsPrimary osteoarthritis, unspecified site 1 Taylor Gonzalez. [address] [place] [address], [id number] , . tel: [phone] Referring Provider: Lisa Vazquez, [address] [place] [address], [address] . tel:[phone] [facility], [address], [place], [place], [address] , tel: [phone] [facility] Medical Management (chief complaint) Body mass index (BMI) 35.0-35.9, adultEssential hypertensionHyperl ipidemia, unspecified hyperlipidemia typeObesity (BMI 30-39.9)Paroxysmal SVT (supraventricular tachycardia)Chroni c pain of right kneeHypothyroidism , unspecified typeHypovitaminosi s DOther chronic painAnxietyGastroe sophageal reflux disease without esophagitisIrritab le bowel syndrome with both constipation and diarrheaHistory of colon polypsOsteopenia, unspecified location Dec- 0 Taylor Gonzalez. [address] [place] [address], [id number] , . tel: [phone] Referring Provider: Lisa Vazquez, [address] [place] [address], [address] [place] [address] . tel:[phone] OFFICE BFKHW-JZL-SC [facility] [employer], [address], [place], [place], [address] , tel: [phone] [facility] Medical Management (chief complaint) Body mass index (BMI) 34.0-34.9, adultDizzinessHype rlipidemia, unspecified hyperlipidemia typeHypothyroidism , unspecified typeObesity (BMI 30-39.9)Essential hypertensionParoxy smal SVT (supraventricular tachycardia)Chroni c pain of right kneeOther chronic pain Dec- 0 Taylor Gonzalez. [address] [place] [address], [address] [place] [address] , . tel: [phone] Referring Provider: Lisa Vazquez, [address] [place] [address], [address] [place] [address] . tel:[phone] [employer], [address], [place], [place], [address] , tel: [phone] [facility] Elevated liver function tests 0 Taylor Gonzalez. [address] [place] [address], [id number] , [place]. tel: [phone] [employer], [address], [place], [place], [address] , tel: [phone] [facility] No Information 0 Taylor Gonzalez. [address] [place] [address], [id number] , . tel: [phone] OFFICE TKUAK-JFO-DL TAILED [employer], [address], [place], [place], [address] , [place] tel: [phone] [facility] Medical Management (chief complaint) Body mass index (BMI) 35.0-35.9, adultHyperlipidemi a, unspecified hyperlipidemia typeArthralgia, unspecified jointHypothyroidis m, unspecified typeHypovitaminosi s DAnxietyEssential hypertensionParoxy smal SVT (supraventricular tachycardia)Allerg ic rhinitis, cause unspecifiedIrritab le bowel syndrome with both constipation and diarrheaPrimary osteoarthritis, unspecified siteOsteopenia, unspecified locationGastroesop hageal reflux disease without esophagitisObesity (BMI 30-39.9) 2- 0 Taylor Gonzalez. [address] [place] [address], [id number] , . tel: [phone] Referring Provider: Lisa Vazquez, [address] [place] [address], [address] . tel:[phone] OFFICE LULTA-KCH-GI TAILED [facility], [address], [place], [place], [address] , tel: [phone] [facility] Medical Management (chief complaint) Body mass index (BMI) 34.0-34.9, adultHypothyroidis m, unspecified typeHypovitaminosi s DHyperlipidemia, unspecified hyperlipidemia typeAnxietyObesity (BMI 30.0-34.9)Essentia l hypertensionGastro esophageal reflux disease without esophagitisIrritab le bowel syndrome with both constipation and diarrheaAllergic rhinitis, cause unspecifiedHistory of colon polypsParoxysmal SVT (supraventricular tachycardia)Osteop enia, unspecified locationPrimary osteoarthritis, unspecified siteLactose intoleranceSkin lesion of right arm 201 9 Taylor Gonzalez. [address] [place] [address], [address], [id number] , . tel: [phone] Referring Provider: Lisa Vazquez, [address] [place] [address], [address] . tel:[phone] [facility], [address], [place], [address] , tel: [phone] [facility] Body mass index (BMI) 34.0-34.9, adultHypothyroidis m, unspecified typeHypovitaminosi s DObesity (BMI 30.0-34.9)Hyperlip idemia, unspecified hyperlipidemia typeAnxietyParoxys mal SVT (supraventricular tachycardia)Allerg ic rhinitis, cause unspecifiedGastroe sophageal reflux disease without esophagitisPrimary osteoarthritis, unspecified siteOsteopenia, unspecified locationSnoringEss ential hypertensionHistor y of colon polypsIrritable bowel syndrome with both constipation and diarrhea 9 Taylor Gonzalez. [address] [place] [address], [id number] , . tel: [phone] Referring Provider: Lisa Vazquez, [address] [place] [address], [address] . tel:[phone] [employer], [address] [place] [address], [id number] , tel: [phone] [facility] Body mass index (BMI) 34.0-34.9, adultHypothyroidis m, unspecified typeHypovitaminosi s DObesity (BMI 30.0-34.9)Hyperlip idemia, unspecified hyperlipidemia typeAnxietyParoxys mal SVT (supraventricular tachycardia)Allerg ic rhinitis, cause unspecifiedGastroe sophageal reflux disease without esophagitisChronic low back pain without sciatica, unspecified back pain lateralityPrimary osteoarthritis, unspecified siteOsteopenia, unspecified locationIrritable bowel syndrome with both constipation and diarrheaHistory of colon polypsSnoringRashE levated blood-pressure reading without diagnosis of hypertensionElevat ed LFTs 8 Taylor Gonzalez. [address] [place] [address], [address] [address], [id number] , . tel: [phone] Referring Provider: Lisa Vazquez, [address] [place] [address], [id number] . tel:[phone] [facility], [address], [place], [place], [id number] , tel: [phone] [facility] Hypovitaminosis DHyperlipidemia, unspecified hyperlipidemia type 8 Taylor Gonzalez. [address] [place] [address], [address], [id number] , . tel: [phone] [facility], [address], [place], [place], [id number] , tel: [phone] [facility] Primary osteoarthritis, unspecified siteOsteopenia, unspecified location 8 Taylor Gonzalez. [address] [place] [address], [id number] , [place]. tel: [phone] [facility], [address], [place], [place], [id number] , tel: [phone] [facility] Body mass index (BMI) 32.0-32.9, adultHyperlipidemi a, unspecified hyperlipidemia typeHypothyroidism , unspecified typeAnxietyGastroe sophageal reflux disease without esophagitisIrritab le bowel syndrome with both constipation and diarrheaOsteopenia , unspecified locationHypovitami nosis DAllergic rhinitis, cause unspecifiedElevate d ALT measurementParoxys mal SVT (supraventricular tachycardia)Primar y osteoarthritis, unspecified siteCervicalgiaChr onic low back pain without sciatica, unspecified back pain lateralityHistory of colon polypsObesity (BMI 30.0-34.9) 8 Taylor Gonzalez. [address] [facility], [address], [id number] , [place]. tel: [phone] Referring Provider: Lisa Vazquez, [address] [place] [address], [id number] . tel:[phone] [facility], [address], [place], [place], [id number] , tel: [phone] [facility] No Information Taylor Gonzalez. [address], [id number] , . tel:[phone] Family History Family Member Type Diagnosis Age At Onset Sister Problem (finding) Cirrhosis Father Problem Throat cancer Father Problem (finding) glaucoma Mother Problem (finding) Alive and well Father Problem Hypercholesterolemia Daughter Problem (finding) Alive and well Brother Problem (finding) malignant neoplasm of l rianna Mother Problem (finding) malignant neoplasm of l rianna Father Problem Hypertension Immunizations Vaccine Date Status Comments COVID-19, mRNA, LNP-S, PF, javier-sucrose, 30 mcg/0.3 mL administered Source: Othe r Provider RSV, recombinant, protein subunit RSVpreF, adjuvant reconstituted, 0.5 mL, PF administered Source: Other Provider COVID-19, mRNA, LNP-S, PF, javier-sucrose, 30 mcg/0.3 mL administered Source: Othe r Provider Influenza vaccine, quadrivalent, adjuvanted administered Source: Other P rovider Pneumococcal conjugate PCV20 , polysaccharide [id number] conjugate, adjuvant, PF administered Source: Other Pr ovider COVID-19, mRNA, LNP-S, bival ent booster, PF, 30 mcg/0.3 mL dose administered Source: Other Provider Fluzone High-Dose, high dose , preservative free administered Source: New Immuniza tion Record Pfizer (Diluent Reconstitute d) COVID19 Vaccine, 0.3mL per dose, 2 doses, administered 21 days apart administered Source: Public [facility] Pfizer (Diluent Reconstitute d) COVID19 Vaccine, 0.3mL per dose, 2 doses, administered 21 days apart administered Source: Public [facility] Fluzone Quad, preservative free, split virus, 0.5mL dosage administered Source: Public Agency Fluzone Quad, preservative free, split virus, 0.5mL dosage administered Source: Public Agency Pfizer-BioNTech COVID19 Vaccine, 0.3mL per dose, 2 doses, administered 21 days apart administered Source: Public [facility] Pfizer-BioNTech COVID19 Vaccine, 0.3mL per dose, 2 doses, administered 21 days apart administered Source: Public Agenc y Fluzone Quad, split virus, 0.5mL dosage administered Source: New Immunkadi Crow Fluzone Quad, split virus, 0.5mL dosage administered Source: Public [facility] Flublok, quadrivalent, preservative free, 0.5mL dosage administered Source: Other Registry SHINGRIX (Zoster vaccine recombinant, adjuvanted) administered Note: [facility] ; Source: Public Agency Tdap administered Note: [facility] ; Source: Public Agency SHINGRIX (Zoster vaccine recombinant, adjuvanted) administered Note: [facility] ; Source: Public Agency Fluzone Quad , preservative free, split virus, 0.5mL dosage administered Source: Other [facility] Payers Payer name Insurance type Covered democrat ID Authoriza tion(s) MEDICARE MB [id number] [employer] CI [id number] MEDICARE MB [id number] [employer] CI [id number] MEDICARE MB [id number] [facility] CI [id number] Social History Type Description Quantity Date Captured Comments Alcohol Use Details Unknown Caffeine Use Details Unknown Tobacco Use Status No Information Smoking Status No Information Sex Female Gender Identity Female Chief Complaint And Reason For Visit No Information Reason For Referral Reason For Referral No Information Plan Of Treatment Date Type Action Status Goal Dietary manageme nt education, guidance, and counseling completed Goal Dietary manageme nt education, guidance, and counseling completed Goal Dietary manageme nt education, guidance, and counseling completed Goal Dietary manageme nt education, guidance, and counseling completed Goal Dietary manageme nt education, guidance, and counseling completed Goal Dietary manageme nt education, guidance, and counseling completed Goal Dietary manageme nt education, guidance, and counseling completed Goal Dietary manageme nt education, guidance, and counseling completed Goal Dietary manageme nt education, guidance, and counseling completed Goal Dietary manageme nt education, guidance, and counseling completed Goal Dietary manageme nt education, guidance, and counseling completed Goal Dietary manageme nt education, guidance, and counseling completed Goal Dietary manageme nt education, guidance, and counseling completed Goal Dietary manageme nt education, guidance, and counseling completed Goal Dietary manageme nt education, guidance, and counseling completed Goal Dietary manageme nt education, guidance, and counseling completed Goal Dietary manageme nt education, guidance, and counseling completed Referral Ordered: X-RAY EXAM OF THORACIC SPINE, 3 VIEWS ordered Referral Ordered: EKG (ELECTROCARDIOGRAM) ordered Future Order: Lab Order CBC AUTO DIFF ([id number]), Sent on: Sent Future Order: Lab Order Lipid Pa sherwin W/Reflex To Direct LDL ([id number]), Sent on: Sent Future Order: Lab Order TSH with Reflex FT4 ([id number]), Sent on: Sent Future Order: Lab Order Comprehe nsive Metabolic (CMP) ([id number]), Sent on: Sent Future Order: Lab Order UA- Dips tick (office Lab) ([id number]), Collected on: Ordered Future Order: Lab Order Lipid Pa sherwin ([id number]), Sent on: Sent Future Order: Lab Order Vitamin D, 25-Hydroxy ([id number]), Sent on: Sent Future Order: Lab Order Comprehe nsive Metabolic (CMP) ([id number]), Sent on: Sent History Of Present Illness Encounter Date Complaint History Of Prese nt Illness HPI Patient is here for annual wellness visit. Patient states that she has been doing well.Hypertension?patient states that the blood pressure has been stable. Hyperlipidemia p atdavin states that she stopped rosuvastatin couple of months ago due to myalgia. Patient states that the myalgia improved after stopping the statin. Patient plans to do better with diet and exercise.Hypothyroidism s table on medication.GERD p atient states that the heartburn symptoms are stable.Paroxysmal SVT p atdavin denies chest pain, shortness of breath, palpitations or dizziness.Osteoarthritis p atient complains of arthritic knee pains.Anxiety p atdavin states that the symptoms are stable on fluoxetine. She is requesting refill for Xanax, which she uses sparingly for panic symptoms.IBS p atdavin has intermittent constipation and diarrhea.History of colon polyps G I follow-up.SALVADOR p vitaliy to schedule appointment with sleep MD.Osteopenia/hypovitaminosis D p atdavin has been taking calcium with vitamin D.Obesity?patient is aware of diet and exercise precautions. Medicare preventive The patient has not felt depressed and has had interest and pleasure doing things recently. Functional Status: (Functional status has not changed) on 08/22/2022. Cognitive Status: (Cognitive status has not changed) on 08/22/2022. The ''Up and Go'' test took less than 30 seconds andthe patient does not need help with activities of daily living. The patient is not at risk for falls. The patient has not fallen in the last year. The fall(s) did not result in injury. Patient's activity level is moderate. Patient exercises occasionally. The patient has smoke detectors, firearms, carbon monoxide detectors, gas heating in the home. There is no radon in the patient's home. Patient reports using a seatbelt in vehicles. Patient reports a no certain diet diet. Patient takes calcium supplements. Patient reports taking Vitamin D. Patient reports taking a multivitamin. Patient does not take folic acid. Relevant history is positive for alcohol use. Patient is a former tobacco user. In the past year the patient has had 4 or more drinks in a day 0 time(s). Screening services were reviewed and updated. hpi f/u of HTN; pt r eports no concernsPatient states that she has been feeling well.Hypertension?patient states that the blood pressure check at home has been averaging 120s/70s. Patient denies chest pain, shortness of breath, palpitations or dizziness. Hyperlipidemia p atient is aware of diet and exercise precautions.Paroxysmal SVT p atient denies chest pain, shortness of breath, palpitations or dizziness.Hypothyroidism s table on medication.GERD p atient states that the heartburn symptoms are stable.Upper back pain/osteoarthritis p atient states that she has occasional pain across the lower thoracic spine. Patient states that it feels like a spasm. It lasts few minutes and resolves spontaneously. She denies any associated symptoms.Anxiety p atient states that the symptoms have been stable. She denies depression or panic attacks.Leg cramps-patient complains of intermittent leg cramps.SALVADOR a dvised to follow up with sleep MD.Osteopenia p atient has been taking calcium with vitamin D. Obesity p atient is aware of diet and exercise precautions. Telehealth Patient presents today for a telehealth f/u of anxiety.Essential hypertension-pt states that the BP has been stable.Anxiety-patient states that she is doing well on fluoxetine 20 mg. She had couple of days when she felt somewhat depressed but is doing well now. She prefers to continue the same dose at this time. Gastroesophageal reflux disease without esophagitis-stable.Primary osteoarthritis-patient states that few days ago, she took her dog out in the yard and felt a sudden sharp pain at the back of her arm and shoulder. Patient states that since then she has been having intermittent burning and itching in the L scapular region. She saw her net software architect and has been advised to use Sarna. Pt states that the knee pains are stable. hpi Patient presents today for a routine follow up of HTN.Patient states that she has been doing well.Hypertension blood pressure has been stable. Patient denies chest pain or shortness of breath.Hyperlipidemia patient is aware of diet and exerciseHypothyroidism stable on medication.Gerd patient states that the heartburn symptoms are stable.IBS – patient down states that the symptoms have been stable.Paroxysmal SVT patient denies chest pain, palpitations, dizziness or shortness of breath.Osteopenia/hypovitaminosis D patient has been taking calcium with vitamin D.SALVADOR p t has to f/up with sleep MD.Anxiety-pt states that she is doing well. 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 Medical management Hypertension p atient states that blood pressure check at home has been stable-130/80s. Patient denies chest pain, shortness of breath, palpitations or dizziness. Hyperlipidemia p atient is aware of diet and exercise precaution. She denies any side effects from the rosuvastatin. GERD p atient states that the heartburn symptoms are stable.Hypothyroidism s table on medication. SALVADOR p atient has been using a dental device. Patient states that she was noted to have sleep apnea during anesthesia. She plans to make appointment with sleep physician for further evaluation.Osteoarthritis p t state that the arthritic joint pains have been stable. She recently had right knee arthroscopic surgery. Patient says that the pain is much improved. She is undergoing physical therapy.Anxiety p atient states that the symptoms are stable on medication. She prefers to continue the medication. Obesity p atient is aware of diet and exercise precautions. Medicare preventive The patient has not felt depressed and has had interest and pleasure doing things recently. The ''Up and Go'' test took less than 30 seconds and the patient does not need help with activities of daily living. The patient is not at risk for falls. The patient has not fallen in the last year. The fall(s) did not result in injury. Patient's activity level is moderate. Patient exercises occasionally. The patient has smoke detectors, firearms, carbon monoxide detectors, gas heating in the home. There is no radon in the patient's home. Patient reports using a seatbelt in vehicles. Patient reports a no certain diet diet. Patient reports taking a calcium supplement. Patient reports taking a vitamin D supplement. Patient reports taking a multivitamin daily. Patient reports taking folic acid daily. Relevant history is positive for alcohol use. Patient is a former tobacco user. In the past year the patient has had 4 or more drinks in a day 0 time(s). Screening services were reviewed, no changes made. Medical Management Patient prese [facility] today for a Pre op Exam02/12 R Knee Medial Meniscus Repair-Dr. Casimiro Wong.Pre-op clearance/right knee pain patient is scheduled for arthroscopic right the meniscal repair. Patient has been having ongoing pain. She has not responded to conservative treatment. Patient denies any problem with surgery or anesthesia in the past.Hypertension blood pressure has been stable. Patient denies chest pain, shortness of breath, palpitations or dizziness.Hyperlipidemia patient aware of diet and exercise precautions.Hypothyroidism stable on medication.Gerd patient states that the heartburn symptoms are stable.SALVADOR stable.Anxiety patient states that the symptoms are stable on fluoxetine.Obesity ? patient aware of diet and exercise precautions. Medical Management Patient prese nts today for a routine follow up of HTN.Patient states that she has been feeling well.Hypertension p atient states that the blood pressure has been stable. Patient denies chest pain or shortness of breath.Hyperlipidemia p vitaliy is trying to do better with diet and exercise. She is tolerating low dose Rosuvastatin.GERD p atient states that the heartburn symptoms have been stable.IBS s ymptoms are stable. Hypothyroidism-stable on medication.Osteoarthritis jeff burks has arthritic pains in her knees. She received cortisone injections in her rt knee which helped for few weeks.Anxiety p vitaliy states that the symptoms are stable on fluoxetine. Patient denies depression or panic attacks.SALVADOR jeff burks was recently seen by Dr. Regan. She has been advised to see her dentist for Mouth guard.Obesity p vitaliy is aware of diet and exercise precautions. Telehealth Patient presents today for a TLC F/UPatient states that she is doing better.Hypertension blood pressure has been stable. Patient denies chest pain, shortness of breath, palpitations and dizziness.Anxiety patient states that she is doing better since fluoxetine dose was increased to 40 mg. She denies depression or panic attacks.Hyperlipidemia patient is aware of diet and exercise precautions. She is intolerant to statins.GERD patient states that the symptoms are stable.IBS symptoms are stable.Osteoarthritis patient states that the joint pains are stable.Snoring patient scheduled to see Dr. Regan for sleep study.Obesity patient is aware of diet and exercise precautions. Telehealth Patient presents today for a TLC Acute. Diarrhea-pt c/o diarrhea 10-12 times/day since 08/07 - some abd cramping prior to having BM, otherwise denies abd pain - denies nausea or vomiting. Pt is watching diet and drinking plenty of fluids, urinating without difficulty. Also c/o slight headache off and on and temperature - states highest reading has been 98.8. Pt was with family members earlier last week who had similar sx that lasted for a day. Pt did have Covid test on 08/10 result was negative. Pt states that she ate yesterday afternoon- peas, felt uncomfortable. HTN-BP has been stable. Medical Management Patient prese nts today for a routine follow up of HTN.Patient states that she has been feeling well.Hypertension p t states that BP has been stable. Patient denies chest pain, shortness of breath, fatigue or dizziness.Hyperlipidemia p atient is aware of diet and exercise precautions.Hypothyroidism- stable on medication.Anxiety p atient states that she has been feeling stressed and anxious. Patient is requesting to increase the dose of fluoxetine. Patient denies symptoms of depression. Patient denies panic symptoms.Snoring p atient is noted to snore at night. She denies significant daytime fatigue or somnolence.Paroxysmal SVT p atient denies chest pain, shortness of breath or palpitations.GERD p atient states that symptoms are stable.IBS s ymptoms are stable.Osteopenia/ hypovitaminosis D p atient has been taking calcium with vitamin D.DJD p atient takes Tylenol as needed for joint pains.Obesity p atient is aware of diet and exercise precautions. Telehealth Patient presents today for a TLC F/U. /- 144/92, 111/98387/37603/100 99121/96 147/55192/91 119/00356/92 132/74 20600/95Hypertension p atient states that the blood pressure in the mornings has been averaging 150-160/90-100. Blood pressure later in the day is now 120 to 130/70s. Patient states that the hydrochlorothiazide did improve her blood pressure but she experienced dizziness with taking the medication. She was not hydrating herself well. Patient has stopped hydrochlorothiazide. She denies any dizziness at this time. She denies chest pain, shortness of breath, palpitations or headache. Patient states that she received a cortisone injection in her right knee approximately a week ago.Obesity p atient is aware of diet and exercise precautions. Patient states that the exercise is limited due to right knee pain, for which she has follow-up with the orthopedist. Telehealth Patient presents today for a TLC visit of HTN. Pt has been taking olmesartan at night-getting high readings in th AM, Ok readings after taking at night. BP readings- 05/02- 161/91 149/91 150/861/24- 164/96 146/8927- 152/92 138/7828-158/90 29- 156/9230-157/9231- 168/94 melatonin 05/11 154/94 xanax2- 148/92 129/693- 142/894 151/96Hypertension/dizziness p t states that the blood pressure is still borderline elevated averaging in the 150s/90s. Patient states that she has been waking up with slight dizziness every morning. She denies headache or vision problems. She denies chest pain or shortness of breath. Pt states that she has been sleeping fairly well. Anxiety p atient states that the symptoms of anxiety are stable.Obesity p atient is aware of diet and exercise precautions. Patient states that the exercise is limited due to right knee pain, for which she has follow-up with the orthopedist. Medical Management Patient prese nts today for a routine follow up of HTN. Patient states that she has been doing well. Hypertension p atient states that the blood pressure has been averaging high in the 150-160s/80s. Patient plans to do better with diet and exercise. Hyperlipidemia p atient states that she stopped taking rosuvastatin as it was causing muscle pain. Reviewed lab results with patient. Cholesterol is noted to be high. Patient plans to do better with diet and exercise. Hypothyroidism?stable on medication. Paroxysmal SVT s table. GERD p atient states that the heartburn symptoms have been stable.IBS s table. Anxiety p atient states that the symptoms have been stable. She takes Xanax sparingly. Osteopenia/hypovitaminosis D p atient has been taking calcium with vitamin D. Osteoarthritis p atient states that arthritic joint pains have been stable. History of colon polyps p atient denies any bowel complaints. Last colonoscopy 2018. Obesity p atient is aware of diet and exercise precautions. Medical Management Pt presents t bro for a routine follow up of HTN.Patient states that she is feeling better. Hypertension b lood pressure check at home is slowly improving. It is still borderline high averaging 150s/90s. Patient denies chest pain, shortness of breath, headache or dizziness. Hyperlipidemia?patient is trying to do better with diet and exercise. She denies any side effects from the statin. Hypothyroidism s table on medication. Paroxysmal SVT s table. Patient denies palpitations or dizziness.GERD p atient states that the heartburn symptoms have been stable.Anxiety p atient states that the symptoms are stable. She denies depression. She denies panic attacks. IBS p atient states that the symptoms are stable. Osteopenia/hypovitaminosis D p atient has been taking calcium with vitamin D.Right knee pain p atient states that she recently received cortisone injection from the orthopedist. It has helped the pain. History of colon polyps l ast colonoscopy 2018.Obesity p atdavin is aware of diet and exercise precautions. Medical Management Pt presents [facility] for an Acute visit.Dizziness/hypertension P atdavin states that 3 days ago, she woke up feeling dizzy. She states that everything seemed to be spinning around her. She had problem ambulating. She checked her blood pressure which was noted to be significantly elevated at 203/106, 203/126, 182/101, 185/99, 160/94. Patient states that she was on metoprolol 0.5 mg 1 tablet 2 times daily but had decreased it on her own to 1 tablet daily for quite some time. Patient has been experiencing intermittent headaches since last 3 days. She denies any vision problems. She denies any focal neurological symptoms.Paroxysmal SVT p atient denies chest pain or palpitations.Hyperlipidemia p atdavin is aware of diet and exercise precautions. Patient states that several weeks ago she decided to stop her simvastatin on her own. She has now restarted. Hypothyroidism?stable on medication.Right knee pain p atdavin has been experiencing pain in her right knee. Patient states that she has appointment to see the orthopedist. Obesity p vitaliy plans to do better with diet and exercise. Medical Management Patient prese nts today for a routine follow up of HTN.Has not been out of the country/state recently.Patient states that she has been doing well. Hypertension b lood pressure has been stable.Hyperlipidemia p atient is aware of diet and exercise precautions. patient denies any side effects from the statin. Paroxysmal SVT p atient denies palpitations or shortness of breath.DJD/arthralgia p atient has arthritic joint pains but recently has been having more hand pains. She notices pain and swelling at times. Patient stated in the morning her hands are stiff, usually for half hour or so. Hypothyroidism s table on medication. IBS p atient has intermittent constipation and diarrhea. She denies abdominal pain or cramping.Osteopenia/hypovitaminosis D p atient has been taking calcium with vitamin D. GERD p atient states that the heartburn symptoms have been stable. Anxiety p atient states that the symptoms of anxiety are stable. She sparingly takes Xanax. Allergic rhinitis p atient has intermittent sinus congestion and drainage. Obesity p atient is aware of diet and exercise precautions. Medical Management Patient prese nts today for a routine follow up of HTN.Essential hypertension-Patient states that the blood pressure has been stable. Patient denies chest pain, shortness of breath, palpitations or dizziness.Hypothyroidism-stable on medication.Hyperlipidemia-Patient is aware of diet precautions. She denies any side effects from the statin.Paroxysmal SVT (supraventricular tachycardia)-Patient denies palpitations, dizziness or shortness of breath.Gastroesophageal reflux disease without esophagitis-Patient states that the heartburn symptoms have been stable.Osteopenia-Patient has been taking calcium with vitamin D. Patient states that she had recent bone density by her new wild life manager Dr. Jorden Mclaughlin. T score was -1.8. She was advised to start to alendronate.Hypovitaminosis D- continue supplement.Anxiety-Patient states that the anxiety symptoms have been stable. She denies any panic attacks. She denies any depression.Irritable bowel syndrome with both constipation and diarrhea-Lactose intolerance-pt states that recently after dairy products, she has been experiencing gas pains, bloating and diarrhea. Pt has started using lactaid which has helped.Primary osteoarthritis-Patient has arthritic joint pain especially knee pains.Allergic rhinitis-Patient c/o sinus congestion and clear drainage.Snoring-Patient does snore at night. She states that she has to yet schedule the sleep study.History of colon polyps-GI follow up. Last colonoscopy 05/02/18.Obesity (BMI 30.0-34.9)-Patient is aware of diet and exercise precautions.Rt upper arm skin lesion-pt c/o lesion on the Rt upper arm- which gets irritated and pt tends to pick on it. Functional Status Date Functional Assessmen t No Information Instructions Date Instruction Additional Infor jose manuel Dietary management e ducation, guidance, and counseling Related to Body mass index (BMI) 35.0-35.9, adult Avoid - citrus, varinder to-based, fried, spicy food, caffeine, etcSit up for at least 45 min following meals. Related to Gastroesophageal reflux disease without esophagitis Related to Essen tial hypertension Maintain a low-fat, low-cholesterol diet and exercise regularly. Related to Hyperlipidemia, unspecified hyperlipidemia type Dietary management e ducation, guidance, and counseling Related to Body mass index (BMI) 36.0-36.9, adult Please monitor your blood pressure daily. Call if average greater than 130/80 or less [id number]. Follow low salt diet and exercise regularly. Related to Essential hypertension Avoid - citrus, varinder to-based, fried, spicy food, caffeine, etcSit up for at least 45 min following meals. Related to Gastroesophageal reflux disease without esophagitis Prescribed activity/ exercise education Related to Body mass index (BMI) 35.0-35.9, adult Dietary management e ducation, guidance, and counseling Related to Body mass index (BMI) 35.0-35.9, adult Avoid - citrus, varinder to-based, fried, spicy food, caffeine, etcSit up for at least 45 min following meals. Related to Gastroesophageal reflux disease without esophagitis Please monitor your blood pressure daily. Call if average greater than 130/80 or less [id number]. Follow low salt diet and exercise regularly. Related to Essential hypertension Maintain a low-fat, low-cholesterol diet and exercise regularly. Related to Hyperlipidemia, unspecified hyperlipidemia type Giving encouragement to exercise Related to Body mass index (BMI) 35.0-35.9, adult Dietary management e ducation, guidance, and counseling Related to Body mass index (BMI) 35.0-35.9, adult Please monitor your blood pressure daily. Call if average greater than 130/80 or less [id number]. Follow low salt diet and exercise regularly. Related to Essential hypertension Avoid - citrus, varinder to-based, fried, spicy food, caffeine, etcSit up for at least 45 min following meals. Related to Gastroesophageal reflux disease without esophagitis Maintain a low-fat, low-cholesterol diet and exercise regularly. Related to Hyperlipidemia, unspecified hyperlipidemia type Prescribed activity/ exercise education Related to Body mass index (BMI) 37.0-37.9, adult Dietary management e ducation, guidance, and counseling Related to Body mass index (BMI) 37.0-37.9, adult Maintain a low-fat, low-cholesterol diet and exercise regularly. Related to Hyperlipidemia, unspecified hyperlipidemia type Avoid - citrus, varinder to-based, fried, spicy food, caffeine, etcSit up for at least 45 min following meals. Related to Gastroesophageal reflux disease without esophagitis Please monitor your blood pressure daily. Call if average greater than 130/80 or less [id number]. Follow low salt diet and exercise regularly. Related to Essential hypertension Giving encouragement to exercise Related to Body mass index (BMI) 36.0-36.9, adult Dietary management e ducation, guidance, and counseling Related to Body mass index (BMI) 36.0-36.9, adult Maintain a low-fat, low-cholesterol diet and exercise regularly. Related to Hyperlipidemia, unspecified hyperlipidemia type Avoid - citrus, varinder to-based, fried, spicy food, caffeine, etcSit up for at least 45 min following meals. Related to Gastroesophageal reflux disease without esophagitis Please monitor your blood pressure daily. Call if average greater than 130/80 or less [id number]. Follow low salt diet and exercise regularly. Related to Essential hypertension Dietary management e ducation, guidance, and counseling Related to Body mass index (BMI) 35.0-35.9, adult Exercise promotion: stretching R elated to Body mass index (BMI) 35.0-35.9, adult Avoid - citrus, varinder to-based, fried, spicy food, caffeine, etcSit up for at least 45 min following meals. Related to Gastroesophageal reflux disease without esophagitis Please monitor your blood pressure daily. Call if average greater than 130/80 or less [id number]. Follow low salt diet and exercise regularly. Related to Essential hypertension Maintain a low-fat, low-cholesterol diet and exercise regularly. Related to Hyperlipidemia, unspecified hyperlipidemia type Exercise promotion: stretching R elated to Body mass index (BMI) 36.0-36.9, adult Dietary management e ducation, guidance, and counseling Related to Body mass index (BMI) 36.0-36.9, adult Please monitor your blood pressure daily. Call if average greater than 130/80 or less [id number]. Follow low salt diet and exercise regularly. Related to Essential hypertension Exercise promotion: stretching R elated to Body mass index (BMI) 36.0-36.9, adult Dietary management e ducation, guidance, and counseling Related to Body mass index (BMI) 36.0-36.9, adult Avoid - citrus, varinder to-based, fried, spicy food, caffeine, etcSit up for at least 45 min following meals. Related to Gastroesophageal reflux disease without esophagitis Maintain a low-fat, low-cholesterol diet and exercise regularly. Related to Hyperlipidemia, unspecified hyperlipidemia type Please monitor your blood pressure daily. Call if average greater than 130/80 or less [id number]. Follow low salt diet and exercise regularly. Related to Essential hypertension Prescribed activity/ exercise education Related to Body mass index (BMI) 36.0-36.9, adult Dietary management e ducation, guidance, and counseling Related to Body mass index (BMI) 36.0-36.9, adult Please monitor your blood pressure daily. Call if average greater than 130/80 or less [id number]. Follow low salt diet and exercise regularly. Related to Essential hypertension Giving encouragement to exercise Related to Body mass index (BMI) 36.0-36.9, adult Dietary management e ducation, guidance, and counseling Related to Body mass index (BMI) 36.0-36.9, adult Please monitor your blood pressure daily. Call if average greater than 130/80 or less [id number]. Follow low salt diet and exercise regularly. Related to Essential hypertension Exercise promotion: stretching R elated to Body mass index (BMI) 36.0-36.9, adult Dietary management e ducation, guidance, and counseling Related to Body mass index (BMI) 36.0-36.9, adult Please monitor your blood pressure daily. Call if average greater than 130/80 or less [id number]. Follow low salt diet and exercise regularly. Related to Essential hypertension Avoid - citrus, varinder to-based, fried, spicy food, caffeine, etcSit up for at least 45 min following meals. Related to Gastroesophageal reflux disease without esophagitis Maintain a low-fat, low-cholesterol diet and exercise regularly. Related to Hyperlipidemia, unspecified hyperlipidemia type Exercise promotion: strength training Related to Body mass index (BMI) 36.0-36.9, adult Dietary management e ducation, guidance, and counseling Related to Body mass index (BMI) 36.0-36.9, adult Exercise promotion: stretching R elated to Body mass index (BMI) 36.0-36.9, adult Continue Caltrate wi th vitamin D. Exercise regularly. Related to Osteopenia, unspecified location Avoid - citrus, varinder to-based, fried, spicy food, caffeine, etcSit up for at least 45 min following meals. Related to Gastroesophageal reflux disease without esophagitis Please monitor your blood pressure daily. Call if average greater than 130/80 or less [id number]. Follow low salt diet and exercise regularly. Related to Essential hypertension check lab. Related to Hypot hyroidism, unspecified type Maintain a low-fat, low-cholesterol diet and exercise regularly. Related to Hyperlipidemia, unspecified hyperlipidemia type Dietary management e ducation, guidance, and counseling Related to Body mass index (BMI) 35.0-35.9, adult Giving encouragement to exercise Related to Body mass index (BMI) 35.0-35.9, adult check lab. Related to Hypot hyroidism, unspecified type Maintain a low-fat, low-cholesterol diet and exercise regularly. Related to Hyperlipidemia, unspecified hyperlipidemia type Please monitor your blood pressure daily. Call if average greater than 130/80 or less [id number]. Follow low salt diet and exercise regularly. Related to Essential hypertension Giving encouragement to exercise Related to Body mass index (BMI) 34.0-34.9, adult Dietary management e ducation, guidance, and counseling Related to Body mass index (BMI) 34.0-34.9, adult Giving encouragement to exercise Related to Body mass index (BMI) 34.0-34.9, adult Continue Caltrate wi th vitamin D. Exercise regularly. Related to Osteopenia, unspecified location check lab. Related to Hypot hyroidism, unspecified type Please monitor your blood pressure daily. Call if average greater than 130/80 or less [id number]. Follow low salt diet and exercise regularly. Related to Essential hypertension Avoid - citrus, varinder to-based, fried, spicy food, caffeine, etcSit up for at least 45 min following meals. Related to Gastroesophageal reflux disease without esophagitis Maintain a low-fat, low-cholesterol diet and exercise regularly. Related to Hyperlipidemia, unspecified hyperlipidemia type Giving encouragement to exercise Related to Body mass index (BMI) 35.0-35.9, adult Dietary management e ducation, guidance, and counseling Related to Body mass index (BMI) 35.0-35.9, adult Continue Caltrate wi th vitamin D. Exercise regularly. Related to Osteopenia, unspecified location Avoid - citrus, varinder to-based, fried, spicy food, caffeine, etcSit up for at least 45 min following meals. Related to Gastroesophageal reflux disease without esophagitis Please monitor your blood pressure daily. Call if average greater than 130/80 or less [id number]. Follow low salt diet and exercise regularly. Related to Essential hypertension Maintain a low-fat, low-cholesterol diet and exercise regularly. Related to Hyperlipidemia, unspecified hyperlipidemia type Eat healthy and exercise regular ly. Related to Obesity (BMI 30.0-34.9) check lab. Related to Hypot hyroidism, unspecified type Dietary management e ducation, guidance, and counseling Related to Body mass index (BMI) 34.0-34.9, adult Giving encouragement to exercise Related to Body mass index (BMI) 34.0-34.9, adult Assessments Type Assessment Date No Information Patient Care Teams Name Effective Dates (start - stop) Status Members No Information
--- OUTSIDE RECORDS SUMMARY | 2024-04-06 05:24 | XMS_ITS | Continuity of Care Document ---
Author Organization [facility] Address [address] [place] [address] Phone Care Team Providers Care Brush Polisher Name Role Phone Dayron Leni TORRES Unavailable Unavaila ble Allergies, Adverse Reactions, Alerts Substance Reaction Status Criticality Penicillins Hives Active No Information Medications Medication Instructions Dosage Effective Dates (start - stop) Status Comments LEVOTHYROXINE SODIUM (unknown strength) Not Available - Active ROSUVASTATIN CALCIUM (unknown strength) take 1 tablet by oral route every day Not Available - Active PROZAC (unknown strength) Not Available - Active METOPROLOL SUCCINATE (unknown strength) Not Available - Active Procedures Procedure Date Methylprednisolone 80mg/ml inj 21 Drugs unclassified injection DRAIN/INJECT JOINT/BURSA OFFICE/OUTPATIENT VISIT EST Methylprednisolone 80mg/ml inj 21 Drugs unclassified injection DRAIN/INJECT JOINT/BURSA OFFICE/OUTPATIENT VISIT EST MRI ANY JT LXTR C-MATRL MRI ANY JT LXTR C-MATRL Methylprednisolone 80mg/ml inj 20 Drugs unclassified injection DRAIN/INJECT JOINT/BURSA OFFICE/OUTPATIENT VISIT EST RADEX KNE COMPL 4/MORE VIEWS Methylprednisolone 80mg/ml inj 20 Drugs unclassified injection DRAIN/INJECT JOINT/BURSA OFFICE/OUTPATIENT VISIT EST RADEX KNE COMPL 4/MORE VIEWS OFFICE/OUTPATIENT VISIT EST RADEX SPI LUMBOSAC 2/3 VIEWS OFFICE/OUTPATIENT VISIT EST RADEX ANKLE COMPL MINIMUM 3 VIEWS RADEX KNE 3 VIEWS OFFICE/OUTPATIENT VISIT EST POSTOP FOLLOW-UP VISIT POSTOP FOLLOW-UP VISIT POSTOP FOLLOW-UP VISIT POSTOP FOLLOW-UP VISIT OFFICE/OUTPATIENT VISIT EST OFFICE/OUTPATIENT VISIT EST POSTOP FOLLOW-UP VISIT OFFICE/OUTPATIENT VISIT EST OFFICE/OUTPATIENT VISIT EST MU Reporting OFFICE/OUTPATIENT VISIT EST MU Reporting OFFICE/OUTPATIENT VISIT EST MU Reporting OFFICE/OUTPATIENT VISIT EST MU Reporting OFFICE/OUTPATIENT VISIT EST MU Reporting OFFICE/OUTPATIENT VISIT EST MU Reporting OFFICE/OUTPATIENT VISIT EST MU Reporting OFFICE/OUTPATIENT VISIT EST MU Reporting POSTOP FOLLOW-UP VISIT MU Reporting POSTOP FOLLOW-UP VISIT MU Reporting MU Reporting MU Reporting OFFICE/OUTPATIENT VISIT EST MU Reporting Advance Directives Directive Yes / No Effective Date File Name No Information Encounters Encounter Description Practice Location Reason(s) For Visit Diagnoses Date Provider Providers Copied on Encounter OFFICE/OUTPA TIENT VISIT EST [facility], [address] [facility] [address], [address], [place] tel:[phone] [facility] Pain in right kneeChondromal acia of right patellofemoral jointBody mass index [BMI] 36.0-36.9, adultPrimary osteoarthritis of right knee 1 Dayron Farrar. [address] [facility] [address], [place], [address]. tel:[phone] OFFICE/OUTPA TIENT VISIT EST [facility], [address] [address], [place], [address], [place] tel:[phone] [facility] Body mass index [BMI] 34.0-34.9, adultChondroma lacia of right patellofemoral jointPain in right knee Feb-1 - 1 L'Hommedieu Union. [address] [facility], [place], [place], [address]. tel:[phone] [facility], [address] [address], [place], [address], [place] tel:[phone] [facility] Unspecified internal derangement of right knee Feb-1 0- 1 No Information Referring Provider: Antony Miles'Jiemedie u, [address] [facility] [address], [place], [address] . tel:[phone] [facility], [address] [address], [place], [address], [place] tel:[phone] [facility] Internal derangement of right knee Feb-0 5- 1 L'Hommedieu Union. [address] [facility], [place], [place], [address]. tel:[phone] [facility], [address] [address], [place], [address], [place] tel:[phone] [facility] Internal derangement of right knee Feb-0 5-202 1 L[place]Hommedieu [place]. [address] [facility], [place], [place], [address]. tel:[phone] [facility], [address] [address], [place], [address], [place] tel:[phone] [facility] Internal derangement of right knee Feb-0 4-202 1 [place]Hom[place]. [address], [place], [place], [address]. tel:[phone] OFFICE/OUTPA TIENT VISIT EST [facility], [address], [address], [place] tel:[phone] [facility] Body mass index (BMI) 34.0-34.9, adultPrimary osteoarthritis of right kneeInternal derangement of right knee Sep- 0 Dayron Farrar. [address] [facility] [address], [place], [address]. tel:[phone] OFFICE/OUTPA TIENT VISIT EST [facility], [address], [address], [place] tel:[phone] [facility] Pain in right kneeBody mass index (BMI) 34.0-34.9, adultInternal derangement of right kneePrimary osteoarthritis of right knee Sep- 0 L'Lang Barretts. [address] [place], [place], [address]. tel:[phone] OFFICE/OUTPA TIENT VISIT EST [facility], [address], [address], [place] tel:[phone] [facility] Pain in left kneePrimary osteoarthritis of left kneeBody mass index (BMI) 32.0-32.9, adult Fe-04 11- 9 [place]. [address] [place], [place], [address]. tel:[phone] OFFICE/OUTPA TIENT VISIT EST [facility], [address], [address], [place] tel:[phone] [facility] My back and buttock hurt alot (chief complaint) Body mass index (BMI) 32.0-32.9, adultLow back pain Nelson-2 8 Mera Bender. [address] [place], [place], [address]. tel:[phone] OFFICE/OUTPA TIENT VISIT EST [facility], [address] [address], [place], [address], [place] tel:[phone] [facility] Left knee pain, unspecified chronicityRigh t ankle pain, unspecified chronicitySpra in of left knee, unspecified ligament, initial encounterSprai n of right ankle, unspecified ligament, initial encounterBody mass index (BMI) 32.0-32.9, adult Feb- 7 Shansean Estevezesh. [address] [facility], [place], [place], [address]. tel:[phone] [facility], [address] [address], [place], [address], [place] tel:[phone] [facility] Trigger finger (acquired)Carp al Tunnel Syndrome 5 Jordon Gordillo. [address] [place], [place], [address]. tel:[phone] [facility], [address] [address], [place], [address], [place] tel:[phone] [facility] Aftercare following surgeryCarpal Tunnel SyndromeTrigge r finger (acquired) 5 Jordon Gordillo. [address] [place], [place], [address]. tel:[phone] [facility], [address], [address], [place] tel:[phone] [facility] Aftercare following surgeryTrigger finger (acquired)Carp al Tunnel Syndrome 5 Jordon Gordillo. [address] [place], [place], [address]. tel:[phone] [facility], [address], [address], [place] tel:[phone] [facility] Aftercare following surgeryCarpal Tunnel SyndromeTrigge r finger (acquired) 5 Jordon Gordillo. [address] [place], [place], [address]. tel:[phone] OFFICE/OUTPA TIENT VISIT EST [facility], [address] [address], [place], [address], [place] tel:[phone] [facility] Trigger finger (acquired)Carp al Tunnel Syndrome 5 Jordon Gordillo. [address] [facility], [place], [place], [address]. tel:[phone] OFFICE/OUTPA TIENT VISIT EST [facility], [address] [address], [place], [address], [place] tel:[phone] [facility] Left knee pain (chief complaint) Osteoarthrosis , unspecified whether generalized or localized, involving lower legPain in joint involving lower leg 4 Saúl Garcia. [address] [address], [place], [place], [address]. tel:[phone] Referring Provider: Lisa Vazquez, [address], [place], [address]. tel:[phone] OFFICE/OUTPA TIENT VISIT EST [facility], [address] [address], [place], [address], [place] tel:[phone] [facility] Aftercare following surgeryTrigger finger (acquired) 4 Jordon Gordillo. [address] [facility], [place], [place], [address]. tel:[phone] OFFICE/OUTPA TIENT VISIT EST [facility], [address] [address], [place], [address], [place] tel:[phone] [facility] Trigger finger (acquired)Johnathanu m tatyana of collat ligmt of unsp finger at MCP/I 4 Jordon Gordillo. [address] [facility], [place], [place], [address]. tel:[phone] OFFICE/OUTPA TIENT VISIT EST [facility], [address] [address], [place], [address], [place] tel:[phone] [facility] Traum rupt of collat ligmt of unsp finger at MCP/I 3 Jordon Gordillo. [address] , [place], [place], [address]. tel:[phone] OFFICE/OUTPA TIENT VISIT EST [facility], [address] [facility] [address], [place], [address], [place] tel:[phone] [facility] Trigger finger (acquired) 3 Jordon Gordillo. [address] , [place], [place], [address]. tel:[phone] OFFICE/OUTPA TIENT VISIT EST [facility], [address] [address], [place], [address], [place] tel:[phone] [facility] Osteoarthrosis , unspecified whether generalized or localized, involving lower legPain in joint involving lower leg 3 Peterson Evans. [address], [place], [place], [address]. tel:[phone] Referring Provider: Lisa Vazquez, [address], [place], [address]. tel:[phone] OFFICE/OUTPA TIENT VISIT EST [facility], [address] [facility] [address], [place], [address], [place] tel:[phone] [facility] Other internal derangement of knee 3 Peterson Evans. [address], [place], [place], [address]. tel:[phone] Referring Provider: Lisa Vazquez, [address], [place], [address]. tel:[phone] OFFICE/OUTPA TIENT VISIT EST [facility], [address] [facility] [address], [place], [address], [place] tel:[phone] [facility] Carpal Tunnel Syndrome 3 Jordon Gordillo. [address] [facility] [place], [place], [address]. tel:[phone] OFFICE/OUTPA TIENT VISIT EST [facility], [address] [address], [place], [address], [place] tel:[phone] [facility] Pain in joint involving shoulder regionCarpal Tunnel Syndrome 3 Horacebernardamarquez Gordillo. [address] , [place], [place], [address]. tel:[phone] OFFICE/OUTPA TIENT VISIT EST [facility], [address] [address], [place], [address], [place] tel:[phone] [facility] Pain in joint involving shoulder region 3 Jordon Duy. [address] [facility], [place], [place], [address]. tel:[phone] [facility], [address], [address], [place] tel:[phone] [facility] pain (chief complaint) Chondromalacia of patellaTear of medial cartilage or meniscus of knee, currentS/P arthroscopic knee surgery 3 Param Ankit. [address] [facility], [place], [place], [address]. tel:[phone] Referring Provider: [address], [place], [address]. tel:[phone] [facility], [address], [address], [place] tel:[phone] [facility] Tear of medial cartilage or meniscus of knee, current 2 Param Ankit. [address] [facility], [place], [place], [address]. tel:[phone] Referring Provider: [address], [place], [address]. tel:[phone] [facility], [address], [address], [place] tel:[phone] [facility] left knee pain (chief complaint) Tear of medial cartilage or meniscus of knee, currentOsteoar throsis, localized, primary, involving lower legTear of medial cartilage or meniscus of knee, current 2 Param Ankit. [address] [place], [place], [address]. tel:[phone] Referring Provider: Lisa Vazquez, [address], [place], [address]. tel:[phone] [facility], [address], [address], [place] tel:[phone] [facility] Other internal derangement of kneeChondromal acia of patellaChondro malacia of patella 2 Param Ankit. [address] [place], [place], [address]. tel:[phone] Referring Provider: Lisa Vazquez, [address], [place], [address]. tel:[phone] OFFICE/OUTPA TIENT VISIT EST [facility], [address], [address], [place] tel:[phone] [facility] Pain in joint involving shoulder regionCarpal Tunnel Syndrome 2 Jordon Gordillo. [address] [place], [place], [address]. tel:[phone] [facility], [address], [address], [place] tel:[phone] [facility] No Information 2 Amando Xiong. [address] [place], [place], [address]. tel:[phone] [facility], [address], [address], [place] tel:[phone] [facility] Carpal Tunnel SyndromeBrachi al neuritis or radiculitis nos 2 Jordon Gordillo. [address] [place], [place], [address]. tel:[phone] Family History Family Member Type Diagnosis Age At Onset Mother Problem malignant neopla sm of lung (Cause Of ) Brother Problem Cancer, brain (Cause Of Deat h) Father Problem cancer of the esophagus (Cau se Of ) Brother Problem malignant neopla sm of lung (Cause Of ) Sister Problem Liver disease (Cause Of Deat h) Sister Problem (finding) Leukemia Mother Problem Cancer, brain (Cause Of Deat h) Payers Payer name Insurance type Covered democrat ID Cece grubbs(s) Medicare E2 OT [id number] [facility] [place] [id number] Social History Type Description Quantity Date Captured Comments Alcohol Use Details Unknown Caffeine Use Details Unknown Tobacco Use Status No Information Smoking Status No Information Sex Female Vital Signs Date / Time: Height Weight BMI Pulse Rate Blood Pressure Temperature Respiratory Rate Body Surface Area Head Circumference Head Circ. Percentile Wt./Jeff. Percentile BMI percentile Pulse Ox Inhaled Ox 11:21 AM 62.00 in 90.718 kg (200.00 lbs) 36.5 8 kg/m shaan (2) Chief Complaint And Reason For Visit No Information Reason For Referral Reason For Referral No Information Plan Of Treatment Date Type Action Status Goal Smoking cessation education completed Goal Tobacco cessation counseling completed Goal Tobacco cessation counseling completed Goal Tobacco cessation counseling completed Goal Tobacco cessation counseling completed Goal Tobacco cessation counseling completed Goal Tobacco cessation counseling completed Referral Ordered: RADEX KNE COMPL 4/MORE VIEWS RT ordered Referral Ordered: RADEX KNE COMPL 4/MORE VIEWS RT knee ordered Referral Ordered: RADEX KNE COMPL 4/MORE VIEWS LT knee ordered Referral Ordered: RADEX SPI LUMBOSAC 2/3 VIEWS ordered Referral Ordered: RADEX ANKLE COMPL MINIMUM 3 VIEWS RT ordered Referral Ordered: MUSC TEST DONE W/N TEST COMP (EMG/NCS) LT Appointment date/timeframe: 05/13/2014 ordered Referral Ordered: RADEX KNE COMPL 4/MORE VIEWS LT ordered Referral Ordered: RADEX FNGR MINIMUM 2 VIEWS RT small finger ordered Referral Ordered: RADEX HAND MINIMUM 3 VIEWS RT ordered Referral Ordered: RADEX KNE 3 VIEWS LT ordered Referral Ordered: MRI ANY JT LXTR C-MATRL LT knee Appointment date/timeframe: 03/16/2012 ordered Referral Ordered: MUSC TEST DONE W/N TEST COMP RT Appointment date/timeframe: 11/08/2011 ordered History Of Present Illness Encounter Date Complaint History Of Prese nt Illness My back and buttock hurt alot Left knee pain Functional Status Date Functional Assessmen t Pain Score 01/17 Instructions Date Instruction Additional Infor jose manuel Giving encouragement to exercise Related to Body mass index [BMI] 36.0-36.9, adult Discussed treatment options Rela angelo to Chondromalacia of right patellofemoral joint Giving encouragement to exercise Related to Body mass index [BMI] 34.0-34.9, adult Giving encouragement to exercise Related to Body mass index (BMI) 34.0-34.9, adult Discussed treatment options Rela angelo to Internal derangement of right knee Giving encouragement to exercise Related to Body mass index (BMI) 34.0-34.9, adult Giving encouragement to exercise Related to Body mass index (BMI) 32.0-32.9, adult Apply ice 20 min per hour Relate d to Primary osteoarthritis of left knee At this time, I feel the patient would benefit from a course of non-operative management. I will start the patient on Naprosyn 500mg p.o. b.i.d. for the next three weeks. I will also start the patient in physical therapy to work on range of motion and strengthening of the lumbar spine and modalities as seen fit by the physical therapist. I discussed with the patient the importance of continuing home therapy once formal therapy has ended. I would like to see the patient again in six weeks. All the patient's questions were answered. Related to Low back pain Dietary needs education Related to Body mass index (BMI) 32.0-32.9, adult DISCUSSED TREATMENT OPTIONS Rela angelo to Sprain of left knee, unspecified ligament, initial encounter Rest, ice and elevate. Related t o Sprain of right ankle, unspecified ligament, initial encounter Report increased henrry n, swelling, numbness or discoloration. Related to Sprain of right ankle, unspecified ligament, initial encounter Activity as tolerated. Related t o Trigger finger (acquired) Activity as tolerated. Related t o Carpal Tunnel Syndrome Activity as tolerated. Related t o Carpal Tunnel Syndrome Activity as tolerated. Related t o Trigger finger (acquired) Activity as tolerated. Related t o Trigger finger (acquired) Activity as tolerated. Related t o Carpal Tunnel Syndrome Activity as tolerated. Related t o Carpal Tunnel Syndrome Activity as tolerated. Related t o Trigger finger (acquired) Activity as tolerated. Related t o Trigger finger (acquired) Activity as tolerated. Related t o Carpal Tunnel Syndrome Activity as tolerated Activity as tolerated Activity as tolerated Protective activity OTC anti-inflammatories (NSAIDs) ROM as tolerated Consider use of glucosamine/chondroitin Protective activity ROM as tolerated Activity as tolerated Physical activity counseling Rel ated to Dietary surveillance counseling Activity as tolerated Assessments Type Assessment Date assessment Pain in right knee assessment Chondromalacia of right patellof emoral joint assessment Body mass index [BMI] 36.0-36.9, adult assessment Primary osteoarthritis of right knee Patient Care Teams Name Effective Dates (start - stop) Status Members No Information
--- OUTSIDE RECORDS SUMMARY | 2024-04-06 05:24 | XMS_ITS | Continuity of Care Document ---
Author Organization [facility] Address [address] [place] [address] Phone Care Team Providers Care Safety Deposit Clerk Name Role Phone Casimiro Wong DO Unavailable Unavailable Allergies, Adverse Reactions, Alerts Substance Reaction Status Criticality Penicillins Rash Active No Information Medications Medication Instructions Dosage Effective Dates (start - stop) Status Comments CELECOXIB 200 MG CAPSULE TAKE 1 CAPSULE BY MOUTH EVERY DAY - Active diazepam 5 mg tablet take 1 tablet by oral route 1 hour before MRI, repeat 30 mins prior to MRI if needed - Active MELOXICAM 15 MG TABLET TAKE 1 TABLET BY MOUTH EVERY DAY - Active metoprolol tartrate 50 mg tablet - Active fluoxetine 40 mg capsule - A ctive olmesartan 20 mg tablet TAKE 1 TABLET BY MOUTH EVERY DAY - Active atorvastatin 20 mg tablet - Active levothyroxine 75 mcg tablet - Active hydrochlorothiazide 25 mg tablet TAKE 1/2 TABLET BY MOUTH EVERY EVENING - Active omeprazole 20 mg capsule,delayed release TAKE 1 CAPSULE BY MOUTH EVERY DAY - Active doxycycline monohydrate 100 mg capsule TAKE 1 CAPSULE BY MOUTH TWICE A DAY - Active nystatin 100,000 unit/gram topical powder USE DIRECTED TOPICALLY NEEDED FOR IRRITATION - Active levothyroxine 50 mcg tablet - Active Celebrex 200 mg capsule take 1 capsule b y oral route every day 200 MG - No Longer Active Procedures Procedure Date Asp/inject major joint or bursa w/o US g uidance Kenalog 40mg/mL Office/outpatient visit,est, mod 2023 BMI Documented Above Normal Limit F/U Pl an Doc X-ray exam shoulder complete, minimum 2 views Office/outpatient visit,est, mod 2023 Asp/inject major joint or bursa w/o US g uidance Kenalog 40mg/mL Advance Directives Directive Yes / No Effective Date File Name No Information Encounters Encounter Description Practice Location Reason(s) For Visit Diagnoses Date Provider Providers Copied on Encounter [facility], [address] [place] [address], [id number], [place] tel:[phone] [facility] No Information 4 Marvin Kirkpatrick. [address] [place] [address], [id number] , [place]. tel:[phone] [facility], [address] [place] [address], [id number], [place] tel:[phone] [facility] No Information 4 Marvin Rivasew. [address] [place] [address], [id number] , [place]. tel:[phone] Office/outpat ient visit,est, mod [facility], [address], [id number], [place] tel:[phone] [facility] Pain in left shoulder 4 Marvin Casimiro. [address] [place] [address], [id number] , [place]. tel:[phone] Referring Provider: Casimiro Navarro, [address] [place] [address], [place], [address] . tel:[phone] [facility], [address] [place], [place] [address], [place], [place], [id number], tel:[phone] [facility] No Information 4 Marvin Kirkpatrick. [address] [facility], [place] [address], [place], [place], [id number] , [place]. tel:[phone] Office/outpat ient visit,est, mod [facility], [address] [facility] [address], [place], [place], [id number], tel:[phone] [facility] Left Arm And Shoulder Pain (chief complaint) Pain in left shoulder 4 Marvin Kirkpatrick. [address] [place] [address], [place] [address], [place], [place], [id number] , [place]. tel:[phone] Referring Provider: Casimiro Navarro, [facility] [place] [address], [place], [address] . tel:[phone] Family History Family Member Type Diagnosis Age At Onset No Information Immunizations Vaccine Date Status Comments Pneumo (2 yrs or older)(PPV) administered Source: Source Unspecified influenza, injectable, quadrivalent, (3 years or older) administered Source: Source Unspecified Payers Payer name Insurance type Covered republican ID Authoriza tion(s) [place] Part B MB [id number] AFLAC CI [id number] Social History Type Description Quantity Date Captured Comments Sex Female Smoking Status No Information Chief Complaint And Reason For Visit No Information Reason For Referral Reason For Referral No Information Plan Of Treatment Date Type Action Status Referral Ordered: MRI Upper extr joint, w/o contrast LT shoulder ordered Referral Ordered: X-ray exam shoulder complete, minimum 2 views LT shoulder ordered Appointment Rosetta Perez [facility] History Of Present Illness Encounter Date Complaint History Of Prese nt Illness Left Arm And Shoulder Pain Functional Status Date Functional Assessmen t No Information Instructions Date Instruction Additional Infor mation No Information Assessments Type Assessment Date No Information Patient Care Teams Name Effective Dates (start - stop) Status Members No Information
--- OUTSIDE RECORDS SUMMARY | 2024-04-06 05:24 | XMS_ITS | Data Portability ---
Author Organization [facility] Address [address] [facility] [address] [place] [address] Care Team Providers Care Tile Conduit Layer Name Role Phone ANAIAFIA MARTINES Referring Provider [phone] JOVANNA JOHNSON Referring Provider Assessment No assessment recorded. Plan of Treatment Reminders Order Date Submit Date Provider Last Modified By Organization Details Last Modified Time Details Appointments None record ed. Lab None record ed. Referral None record ed. Procedures None record ed. Surgeries None record ed. Imaging None record ed. Medication Orders None record ed. Patient TargetsNo targets recorded. Patient InstructionsNo instructions recorded. Reason for Referral None Reported. Procedures Surgical History Date Name Laterality Status Provider Name and Address Organization Details Recorded Time 10/12/2020 Sleep Study completed Piero Ray [facility] 10/14/19 21 18:23:39 Imaging Results None recorded. Procedure Notes None recorded. Medical Equipment None Reported. Medications Name Sig Start Date Stop Date Status Note LastModified by Organization Details LastModified Time fluoxetine 40 mg capsule TAKE 1 CAPSULE BY MOUTH EVERY DAY IN THE MORNING active Not Available Not Available No t Available clindamycin HCl 150 mg capsule TAKE 1 CAPSULE BY MOUTH EVERY 6 HOURS UNTIL FINISHED active Not Available Not Available No t Available alprazolam 0.25 mg tablet TAKE ONE TABLET BY MOUTH THREE TIMES DAILY NEEDED active Not Available Not Available No t Available levothyroxin e 50 mcg tablet TAKE 1 TABLET BY MOUTH EVERY DAY active Not Available Not Available No t Available metoprolol tartrate 50 mg tablet TAKE 1 TABLET BY MOUTH TWICE A DAY active Not Available Not Available No t Available omeprazole 20 mg capsule,luis m yed release TAKE 1 CAPSULE BY MOUTH EVERY DAY active Not Available Not Available No t Available hydrochlorot hiazide 25 mg tablet TAKE 1/2 TAB BY MOUTH EVERY EVENING active Not Available Not Available No t Available nystatin 100,000 unit/gram topical powder APPLY TO SKIN FOLD EVERY DAY AFTER SHOWERS active Not Available Not Available No t Available ketoconazole 2 % topical cream USE NEEDED TO AFFECTED SKIN FOLDS active Not Available Not Available N ot Available fluoxetine 20 mg capsule TAKE 1 CAPSULE BY MOUTH EVERY DAY IN THE MORNING active Not Available Not Available No t Available diazepam 5 mg tablet PLEASE SEE ATTACHED FOR DETAILED DIRECTIONS active Not Available Not Available N ot Available olmesartan 20 mg tablet TAKE 1 TABLET BY MOUTH EVERY DAY active Not Available Not Available No t Available olmesartan 40 mg tablet TAKE 1 TABLET BY MOUTH EVERY DAY active Not Available Not Available No t Available rosuvastatin 10 mg tablet active Not Available Not Available Not Available ID NOW COVID-19 Test Kit TEST DIRECTED active Not Available Not Available No t Available Vitals Date Recorded Body height Body mass index (BMI) Body weight Provider Name and Address Organization Details Last Updated DateTime 10/12/2020 157.48 cm 36 kg/m2 74799.7 g Yu Swartz [facility] 10/12/2020 14:35:51 Social History None recorded. Functional Status None recorded. Mental Status None recorded. Family History Nothing Reported. Medical History No medical history recorded. Gynecological HistoryNo gynecological history recorded. Obstetrics History GPAL:G 0 P 0 0 0 0 Past Encounters Encounter ID Performer Location Encounter Start Date Encounter Closed Date Diagnosis/Indication Diagnosis SNOMED-CT Code Diagnosis ICD10 Code [id number] Javed Regan MD [facility] [id number] [phone] [id number] [place] [address] 10/12/2020 14:14:45 10/13/2020 17:25:18 Obstructive sleep apnea of adult 8550562993 103 G47.33 Health Concerns Section Related Observation LastModified by Organization Detai ls LastModified Time None Recorded Concern Status LastModified by Organization Details LastModified Time None Recorded Advance Directives Directive None Recorded Payers Encounter Date Sequence Insurance Name Policy Number Policy Lo Covered Member ID Lo Member ID Guarantor Name 10/12/2020 2 [employer] (MEDICARE SUPPLEMENT) Rosetta Perez [id number] Kenna Perez 10/12/2020 1 [place] Rosetta Galicia Cherokee [id number] Kenna Cherokee Notes Date Note Type Note Provider Name and Address Organization Details Recorded Time 10/12/2020 text/html HST SetupReporte d [email or web address].HST set upDemonstrated to patient how to set up Home Sleep Test Device. The patient was able to return demonstration with out difficulty.; The patient is returning the device the following morning.; The patient is wearing HST without CPAP.Notes:Pt is aware of extra battery, tape and hotline to call if needed. Pts was here as well. Javed Regan MD [facility] [id number] [address] [place] [address], [place], [address], [facility] 10/14/2020 16:17:36 OBGyn Episode No OBEpisode recorded.
== END 2024-03-30 07:47 | disposition home or self-care (01) ==
PROVIDERS: PCP Internal Medicine
DX: M94.212 Chondromalacia, left shoulder (principal); M25.712 Osteophyte, left shoulder; M75.32 Calcific tendinitis of left shoulder; M25.412 Effusion, left shoulder; M75.52 Bursitis of left shoulder
CPT/HCPCS: 73221

== ENCOUNTER 2024-06-17 15:28 | Outpatient (CLI) | payer MEDICARE, SELFPAY ==
--- NOTE | ~2024-06-17 | CT_ITS ---
CT Scan of the Chest without Contrast: Clinical Indication: Pulmonary nodule Technique: Contiguous sections were acquired throughout the chest without intravenous contrast. Dose reduction technique was used on this scan by utilizing automated exposure control and iterative recon struction technique. The dose-length product (DLP) was 159.00 mGy-cm. COMPARISON: 03/12/2024 Findings: There is no evidence of any significant mediastinal, hilar or axillary lymphadenopathy. Aberrant righ t subclavian artery noted. There is no evidence of pleural or pericardial effusion. Stable 3 mm right upper lobe pulmonary nodule (axial image 40). Additional tiny peripheral subcentime ter right upper lobe nodules are also unchanged. 9 mm semisolid nodule with mild surrounding groundgl ass opacity right lower lobe is similar to prior exam (axial image 63). Images through the upper abdomen reveal no abnormalities. Impression: Stable pulmonary nodules, as detailed above. Reviewed, dictated and finalized at [facility]. Impression: Stable pulmonary nodules, as detailed above.
--- OUTSIDE RECORDS SUMMARY | 2024-06-17 18:08 | XMS_ITS | Continuity of Care Document ---
Author Organization [facility] Address [address] [place] [address] Phone Care Team Providers Care Baker Test Name Role Phone Lisa Vazquez MD Unavailable [...] URINE INCON ASSESS PPPS, subseq visit OFFICE [id number] BODY MASS INDEX DOCD SYST BP GE [...] ANTIG Pt inelig neg scrn depres OFFICE [id number] BODY MASS INDEX DOCD SYST BP LT 130 MM HG DIAST BP < 80 MM HG OFFICE [id number] FALL RISK ASSESSMENT DOC'D PRES/ABSN URINE INCON ASSESS Pt inelig neg scrn depres CBC, INC PLATELETS AND DIFFERENTIAL COMPREHEN METABOLIC PANEL CMP LIPID PANEL THYROID STIMULATION HORMONE(TSH) 2021 VITAMIN D, 25-HYDROXY URINALYSIS, DIPSTICK (UA) - Office Lab M ROUTINE VENIPUNCTURE OFFICE [id number] SYST BP LT 130 MM HG DIAST BP < 80 MM HG Pt inelig neg scrn deprlucero FALL RISK ASSESSMENT DOC'D PRES/ABSN URINE INCON ASSESS PPPS, initial visit SYST BP LT 130 MM HG DIAST BP < 80 MM HG OFFICE [id number] SYST BP LT 130 MM HG DIAST BP < 80 MM HG OFFICE [id number] SYST BP LT 130 MM HG DIAST BP < 80 MM HG Pt inelig neg scrn nohelia TELEPHONE E&M BY A PHYSICIAN; 02-27 TRACIE JAMES TELEPHONE E&M SERVICE BY A PHYSICIAN;5-1 0 MINUTES OF MEDICAL DISCUSSION Brief Emotional/Behavioral A ssessment, With Scoring/Doct, Per Stndrd Instrument Depression screen annual Pt inelig neg scrn deprlucero OFFICE [id number] SYST BP LT 130 MM HG DIAST BP < 80 MM HG TELEPHONE E&M BY A PHYSICIAN; 02-27 TRACIE JAMES SYST BP LT 130 MM HG DIAST BP < 80 MM HG TELEPHONE E&M BY A PHYSICIAN; 02-27 TRACIE JAMES SYST BP >= 140 MM HG6 IT DIAST BP 80-89 MM HG Pt inelig neg scrn depres OFFICE [id number] SYST BP >= 140 MM HG6 IT DIAST BP >= 90 MM HG Admin influenza virus vac FLU VACC 4 GRAHAM 0.5mL DOSAGE OFFICE [id number] SYST BP GE 130 - 139MM HG DIAST BP < 80 MM HG OFFICE [id number] SYST BP >= 140 MM HG6 IT DIAST BP >= 90 MM HG EKG (ELECTROCARDIOGRAM) Pt inelig neg scrn depres COMPREHEN METABOLIC PANEL CMP 0 RHEUMATOID FACTOR: QN RBC SED RATE, AUTOMATED ROUTINE VENIPUNCTURE OFFICE [id number] SYST BP GE 130 - 139MM HG DIAST BP 80-89 MM HG Pt inelig neg scrn depres THYROID STIMULATION HORMONE(TSH) 2018 ROUTINE VENIPUNCTURE DESTRUCT BENIGN LESIONS OTHE R THAN SKIN TAGS OR CUTANEOUS VASCULAR LESIONS UP TO OFFICE [id number] SYST BP GE 130 - 139MM HG DIAST BP 80-89 MM HG Advance Directives Directive Yes / No Effective Date File Name No Information Encounters Encounter Description Practice Location Reason(s) For Visit Diagnoses Date Provider Providers Copied on Encounter [facility], [id number] [place] [address], [address] [place] [address] , tel: [phone] [facility] No Information 4 Taylor Lisa. [address] [place] [address], [id number] , . tel: [phone] [facility], [address], [place], [address] , tel: [phone] [facility] No Information 0 3 Taylor Lisa. [address], [id number] , [place]. tel: [phone] [facility], [address] [place] [address], [id number] , tel: [phone] [facility] No Information Nov0 3 Taylor Lisa. [address], [id number] , . tel: [phone] [facility], [address], [place], [place], [address] , tel: [phone] [facility] No Information 4 3 Taylor Lisa. [address] [place] [address], [id number] , . tel: [phone] [facility], [address], [place], [place], [address] , tel: [phone] [facility] No Information 2 3 Taylor Lisa. [address] [place] [address], [id number] , . tel: [phone] [facility], [address] [facility], [place], [place], [address] , tel: [phone] [facility] No Information 3 Taylor Lisa. [address] [place] [address], [address] [place] [address] , . tel: [phone] [facility], [address] [facility], [place], [place], [address] , tel: [phone] [facility] No Information 0 - 3 Taylor Lisa. [address] [place] [address], [id number] , . tel: [phone] [facility], [address] [facility], [place], [place], [address] , tel: [phone] [facility] No Information 0 2 3 Taylor Lisa. [address] [place] [address], [id number] , . tel: [phone] OFFICE XHFPP-YYS-ST TAILED [facility], [address] [facility], [place], [place], [address] , tel: [phone] [facility] HPI (chief complaint)M edicare preventive (chief complaint) Body mass index [BMI] 35.0-35.9, adultHyperlipidemi a, unspecified hyperlipidemia typeHypothyroidism , unspecified typeOSA (obstructive sleep apnea)Primary osteoarthritis, unspecified siteParoxysmal SVT (supraventricular tachycardia)Gastro esophageal reflux disease without esophagitisOsteope macy, unspecified locationEssential hypertensionAnxiet yHypovitaminosis DIrritable bowel syndrome with both constipation and diarrheaMedicare annual wellness visit, subsequentObesity (BMI 30-39.9)History of colon polyps 3 Taylor Gonzalez. [address] [place] [address], [address] [place] [address] , . tel: [phone] Referring Provider: Lisa Vazquez, [address] [place] [address], [address] [place] [address] . tel:[phone] [facility], [id number] [place] [address], [address] [place] [address] , tel: [phone] [facility] No Information 3 Taylor Gonzalez. [address] [place] [address], [address] [place] [address] , . tel: [phone] [facility], [address], [place], [address] , tel: [phone] [facility] No Information 2 Taylor Gonzalez. [address] [place] [address], [address], [address] [place] [address] , . tel: [phone] Referring Provider: Lisa Vazquez, [address] [place] [address], [address] [place] [address] . tel:[phone] [facility], [address] [place] [address], [id number] , tel: [phone] [facility] Acute cough 2 Taylor Gonzalez. [address] [place] [address], [address] [place] [address] , . tel: [phone] Referring Provider: Lisa Vazquez, [address] [place] [address], [address] [place] [address] . tel:[phone] [facility], [address], [place], [place], [address] , tel: [phone] [facility] No Information 2 Taylor Gonzalez. [address] [facility], [address], [id number] , . tel: [phone] [facility], [address], [place], [place], [address] , tel: [phone] [facility] Dorsalgia, unspecifiedEssenti al (primary) hypertension 2 Taylor Gonzalez. [address] [place] [address], [address], [id number] , . tel: [phone] Referring Provider: Lisa Vazquez, [address] [place] [address], [address] . tel:[phone] OFFICE XETSH-YIL-WR TAILED [facility], [address], [place], [place], [address] , tel: [phone] [facility] hpi (chief complaint) Chronic upper back painOther chronic painEssential hypertensionHyperl ipidemia, unspecified hyperlipidemia typeLeg crampsAnxietyGastr oesophageal reflux disease without esophagitisOsteope macy, unspecified locationParoxysmal SVT (supraventricular tachycardia)Hypoth yroidism, unspecified typeObesity (BMI 30-39.9)Primary osteoarthritis, unspecified siteOSA (obstructive sleep apnea)Body mass index [BMI] 36.0-36.9, adult 2 Taylor Gonzalez. [address] [place] [address], [address], [id number] , . tel: [phone] Referring Provider: Lisa Vazquez, [address] [place] [address], [address] . tel:[phone] OFFICE DCMVW-DAF-ZB PANDED [facility], [address] [place] [address], [id number] , tel: [phone] [facility] Telehealth (chief complaint) Body mass index [BMI] 35.0-35.9, adultAnxietyEssent ial hypertensionGastro esophageal reflux disease without esophagitisPrimary osteoarthritis, unspecified site 2 Taylor Gonzalez. [address] [place] [address], [address], [id number] , . tel: [phone] Referring Provider: Lisa Vazquez, [address] [place] [address], [address] . tel:[phone] [facility], [address], [place], [place], [address] , [place] tel: [phone] [facility] No Information 2 Taylor Gonzalez. [address] [place] [address], [address], [id number] , . tel: [phone] OFFICE UNXHD-BDE-YD TAILED [facility], [address] [place] [address], [id number] , tel: [phone] [facility] hpi (chief complaint) Body mass index [BMI] 35.0-35.9, adultEssential hypertensionHyperl ipidemia, unspecified hyperlipidemia typeHypovitaminosi s DHypothyroidism, unspecified typeObesity (BMI 30-39.9)AnxietyOSA (obstructive sleep apnea)Gastroesopha geal reflux disease without esophagitisPrimary osteoarthritis, unspecified siteIrritable bowel syndrome with both constipation and diarrheaOsteopenia , unspecified locationParoxysmal SVT (supraventricular tachycardia)Histor y of colon polyps 2 Taylor Gonzalez. [address] [place] [address], [address], [id number] , [place]. tel: [phone] Referring Provider: Lisa Vazquez, [address] [place] [address], [address] . tel:[phone] [facility], [address], [place], [place], [address] , tel: [phone] [facility] Medicare preventive (chief complaint)M edical management (chief complaint) Body mass index [BMI] 37.0-37.9, adultMedicare annual wellness visit, initialHypothyroid ism, unspecified typeHyperlipidemia , unspecified hyperlipidemia typeAnxietyOSA (obstructive sleep apnea)Essential hypertensionGastro esophageal reflux disease without esophagitisObesity (BMI 30-39.9)Primary osteoarthritis, unspecified site 1 Taylor Gonzalez. [address] [place] [address], [address], [id number] , . tel: [phone] Referring Provider: Lisa Vazquez, [address] [place] [address], [address] . tel:[phone] OFFICE FRXCO-FTP-EL [facility], [address], [place], [place], [address] , tel: [phone] [facility] Medical Management (chief complaint) Body mass index [BMI] 36.0-36.9, adultPre-operative clearanceChronic pain of right kneeOther chronic painHypothyroidism , unspecified typeObesity (BMI 30-39.9)Hyperlipid emia, unspecified hyperlipidemia typeAnxietyEssenti al hypertensionOSA (obstructive sleep apnea)Gastroesopha geal reflux disease without esophagitis 1 Taylor Gonzalez. [address] [place] [address], [address], [id number] , . tel: [phone] Referring Provider: Lisa Vazquez, [address] [place] [address], [address] . tel:[phone] [facility], [address], [place], [place], [address] , tel: [phone] [facility] No Information 1 Taylor Gonzalez. [address] [place] [address], [address], [id number] , . tel: [phone] OFFICE QMUFW-QUL-TQ [facility], [address], [place], [place], [address] , tel: [phone] [facility] Medical Management (chief complaint) Body mass index (BMI) 35.0-35.9, adultEssential hypertensionHyperl ipidemia, unspecified hyperlipidemia typeGastroesophage al reflux disease without esophagitisIrritab le bowel syndrome with both constipation and diarrheaPrimary osteoarthritis, unspecified siteHypothyroidism , unspecified typeAnxietyOSA (obstructive sleep apnea)Obesity (BMI 30-39.9) 1 Taylor Gonzalez. [address] [place] [address], [address], [id number] , . tel:[phone] Referring Provider: Lisa Vazquez, [address] [place] [address], [address] . tel:[phone] TELEPHONE E&M BY A PHYSICIAN; 11-20 MINUTES [facility], [address], [place], [address] , tel:[phone] [facility] Telehealth (chief complaint) Body mass index (BMI) 36.0-36.9, adultEssential hypertensionObesit y (BMI 30-39.9)Hyperlipid emia, unspecified hyperlipidemia typeAnxietyGastroe sophageal reflux disease without esophagitisIrritab le bowel syndrome with both constipation and diarrheaPrimary osteoarthritis, unspecified siteSnoring 1 Taylor Gonzalez. [address] [place] [address], [address], [id number] , . tel:[phone] Referring Provider: Lisa Vazquez, [address] [place] [address], [address] . tel:[phone] TELEPHONE E&M SERVICE BY A PHYSICIAN;5- 10 MINUTES OF MEDICAL DISCUSSION [facility], [address], [place], [place], [address] , tel:[phone] [facility] (chief complaint) Body mass index (BMI) 36.0-36.9, adultDiarrhea, unspecified typeEssential hypertension 1 Taylor Gonzalez. [address] [place] [address], [address], [id number] , . tel:[phone] Referring Provider: Lisa Vazquez, [address] [place] [address], [address] . tel:[phone] [facility], [address], [place], [place], [address] , tel: [phone] [facility] Medical Management (chief complaint) Body mass index (BMI) 36.0-36.9, adultEssential hypertensionHyperl ipidemia, unspecified hyperlipidemia typeObesity (BMI 30-39.9)AnxietyHyp ovitaminosis DHypothyroidism, unspecified typeParoxysmal SVT (supraventricular tachycardia)Gastro esophageal reflux disease without esophagitisIrritab le bowel syndrome with both constipation and diarrheaOsteopenia , unspecified locationPrimary osteoarthritis, unspecified siteSnoring 1 Taylor Gonzalez. [address] [place] [address], [address], [id number] , . tel:[phone] Referring Provider: Lisa Vazquez, [address] [place] [address], [address] . tel:[phone] TELEPHONE E&M BY A PHYSICIAN; 11-20 MINUTES [facility], [address], [place], [place], [address] , tel: [phone] [facility] Telehealth (chief complaint) Body mass index (BMI) 36.0-36.9, adultEssential hypertensionObesit y (BMI 30-39.9) 1 Taylor Gonzalez. [address] [facility], [address], [id number] , . tel:[phone] Referring Provider: Lisa Vazquez, [address] [place] [address], [address] . tel:[phone] TELEPHONE E&M BY A PHYSICIAN; 11-20 MINUTES [facility], [address], [place], [place], [address] , tel:[phone] [facility] Telehealth (chief complaint) Body mass index (BMI) 36.0-36.9, adultEssential hypertensionAnxiet yDizzinessObesity (BMI 30-39.9) 1 Taylor Gonzalez. [address] [place] [address], [id number] , . tel: [phone] Referring Provider: Lisa Vazquez, [address] [place] [address], [address] . tel:[phone] [facility]ICE [facility], [address] [place] [address], [id number] , tel: [phone] [facility] Medical Management (chief complaint) Body mass index (BMI) 36.0-36.9, adultHypothyroidis m, unspecified typeHypovitaminosi s DObesity (BMI 30-39.9)Hyperlipid emia, unspecified hyperlipidemia typeAnxietyEssenti al hypertensionParoxy smal SVT (supraventricular tachycardia)Gastro esophageal reflux disease without esophagitisIrritab le bowel syndrome with both constipation and diarrheaOsteopenia , unspecified locationHistory of colon polypsPrimary osteoarthritis, unspecified site 1 Taylor Gonzalez. [address] [place] [address], [id number] , . tel: [phone] Referring Provider: Lisa Vazquez, [address] [place] [address], [address] . tel:[phone] OFFICE [facility], [address], [place], [place], [address] , tel: [phone] [facility] Medical Management (chief complaint) Body mass index (BMI) 35.0-35.9, adultEssential hypertensionHyperl ipidemia, unspecified hyperlipidemia typeObesity (BMI 30-39.9)Paroxysmal SVT (supraventricular tachycardia)Chroni c pain of right kneeHypothyroidism , unspecified typeHypovitaminosi s DOther chronic painAnxietyGastroe sophageal reflux disease without esophagitisIrritab le bowel syndrome with both constipation and diarrheaHistory of colon polypsOsteopenia, unspecified location Dec- 0 Taylor Gonzalez. [address] [place] [address], [id number] , . tel: [phone] Referring Provider: Lisa Vazquez, [address] [place] [address], [address] [place] [address] . tel:[phone] OFFICE EBORX-LEX-MK [facility], [address], [place], [place], [address] , tel: [phone] [facility] Medical Management (chief complaint) Body mass index (BMI) 34.0-34.9, adultDizzinessHype rlipidemia, unspecified hyperlipidemia typeHypothyroidism , unspecified typeObesity (BMI 30-39.9)Essential hypertensionParoxy smal SVT (supraventricular tachycardia)Chroni c pain of right kneeOther chronic pain Dec- 0 Taylor Gonzalez. [address] [place] [address], [address] [place] [address] , . tel: [phone] Referring Provider: Lisa Vazquez, [address] [place] [address], [address] [place] [address] . tel:[phone] [facility], [address], [place], [place], [address] , tel: [phone] [facility] Elevated liver function tests 0 Taylor Gonzalez. [address] [place] [address], [id number] , [place]. tel: [phone] [facility], [address], [place], [address] , tel: [phone] [facility] No Information 0 Taylor Gonzalez. [address] [place] [address], [id number] , . tel: [phone] OFFICE CNRWB-XTH-VI TAILED [facility], [address], [place], [address] , [place] tel: [phone] [facility] Medical Management (chief complaint) Body mass index (BMI) 35.0-35.9, adultHyperlipidemi a, unspecified hyperlipidemia typeArthralgia, unspecified jointHypothyroidis m, unspecified typeHypovitaminosi s DAnxietyEssential hypertensionParoxy smal SVT (supraventricular tachycardia)Allerg ic rhinitis, cause unspecifiedIrritab le bowel syndrome with both constipation and diarrheaPrimary osteoarthritis, unspecified siteOsteopenia, unspecified locationGastroesop hageal reflux disease without esophagitisObesity (BMI 30-39.9) 2- 0 Taylor Gonzalez. [address] [place] [address], [id number] , . tel: [phone] Referring Provider: Lisa Vazquez, [address] [place] [address], [address] . tel:[phone] OFFICE DEIYP-HGE-QI TAILED [facility], [address], [place], [place], [address] , tel: [phone] [facility] Medical Management (chief complaint) Body mass index (BMI) 34.0-34.9, adultHypothyroidis m, unspecified typeHypovitaminosi s DHyperlipidemia, unspecified hyperlipidemia typeAnxietyObesity (BMI 30.0-34.9)Essentia l hypertensionGastro esophageal reflux disease without esophagitisIrritab le bowel syndrome with both constipation and diarrheaAllergic rhinitis, cause unspecifiedHistory of colon polypsParoxysmal SVT (supraventricular tachycardia)Osteop enia, unspecified locationPrimary osteoarthritis, unspecified siteLactose intoleranceSkin lesion of right arm 201 9 Taylor Gonzalez. [address] [place] [address], [address], [id number] , . tel: [phone] Referring Provider: Lisa Vazquez, [address] [place] [address], [address] . tel:[phone] [facility], [address], [place], [address] , tel: [phone] [facility] Body mass index (BMI) 34.0-34.9, adultHypothyroidis m, unspecified typeHypovitaminosi s DObesity (BMI 30.0-34.9)Hyperlip idemia, unspecified hyperlipidemia typeAnxietyParoxys mal SVT (supraventricular tachycardia)Allerg ic rhinitis, cause unspecifiedGastroe sophageal reflux disease without esophagitisPrimary osteoarthritis, unspecified siteOsteopenia, unspecified locationSnoringEss ential hypertensionHistor y of colon polypsIrritable bowel syndrome with both constipation and diarrhea 9 Taylor Gonzalez. [address] [place] [address], [id number] , . tel: [phone] Referring Provider: Lisa Vazquez, [address] [place] [address], [address] . tel:[phone] [facility], [address] [place] [address], [id number] , tel: [phone] [facility] Body mass index (BMI) 34.0-34.9, [...] of hypertensionElevat ed LFTs 8 Taylor Gonzalez. [address] [place] [address], [address], [id number] , . tel: [phone] Referring Provider: Lisa Vazquez, [address] [place] [address], [address] . tel:[phone] [facility], [address], [place], [place], [address] , tel: [phone] [facility] Hypovitaminosis DHyperlipidemia, unspecified hyperlipidemia type 8 Taylor Gonzalez. [address] [place] [address], [address], [id number] , . tel: [phone] [facility], [address], [place], [place], [address] , tel: [phone] [facility] Primary osteoarthritis, unspecified siteOsteopenia, unspecified location 8 Taylor Gonzalez. [address] [place] [address], [id number] , [place]. tel: [phone] [facility], [address], [place], [place], [address] , tel: [phone] [facility] Body mass index (BMI) [...] colon polypsObesity (BMI 30.0-34.9) 8 Taylor Gonzalez. [address] [facility], [address], [id number] , [place]. tel: [phone] Referring Provider: Lisa Vazquez, [address] [place] [address], [address] . tel:[phone] [facility], [address], [place], [place], [address] , tel: [phone] [facility] No Information Taylor Gonzalez. [address], [id number] , . tel:[phone] Family History Family Member Type Diagnosis Age [...] P rovider Pneumococcal conjugate PCV20 , polysaccharide [id number] conjugate, adjuvant, PF administered Source: Other Pr ovider COVID-19, mRNA, LNP-S, bival ent booster, PF, 30 mcg/0.3 mL dose administered Source: Other Provider Fluzone High-Dose, high dose , preservative free administered Source: New Immuniza tion Record Pfizer (Diluent Reconstitute d) COVID19 Vaccine, 0.3mL per dose, 2 doses, administered 21 days apart administered Source: Public [facility] Pfizer (Diluent Reconstitute d) COVID19 Vaccine, 0.3mL per dose, 2 doses, administered 21 days apart administered Source: Public [facility] Fluzone Quad, preservative free, split virus, 0.5mL dosage administered Source: Public Agency Fluzone Quad, preservative free, split virus, 0.5mL dosage administered Source: Public Agency Pfizer-BioNTech COVID19 Vaccine, 0.3mL per dose, 2 doses, administered 21 days apart administered Source: Public [facility] Pfizer-BioNTech COVID19 Vaccine, 0.3mL per dose, 2 doses, administered 21 days apart administered Source: Public Agenc y Fluzone Quad, split virus, 0.5mL dosage administered Source: New [facility] Fluzone Quad, split virus, 0.5mL dosage administered Source: Public Agenv y Flublok, quadrivalent, preservative free, 0.5mL dosage administered Source: Other Registry SHINGRIX (Zoster vaccine recombinant, adjuvanted) administered Note: [facility] ; Source: Public Agency Tdap administered Note: Urgent Ca re ; Source: Public Agency SHINGRIX (Zoster vaccine recombinant, adjuvanted) administered Note: [facility] ; Source: Public Agency Fluzone Quad , preservative free, split virus, 0.5mL dosage administered Source: Other [facility] Payers Payer name Insurance type Covered [employer] party ID Authoriza tion(s) MEDICARE MB [id number] [employer] SENIOR SU[employer]LEMENT[employer] CI [id number] MEDICARE MB [id number] [employer] S[employer]IOR SU[employer]LEMENT[employer] CI [id number] MEDICARE MB [id number] [facility] CI [id number] Social History Type Description Quantity Date Captured [...] Future Order: Lab Order CBC AUTO DIFF ([id number]), Sent on: Sent Future Order: Lab Order Lipid Pa sherwin W/Reflex To Direct LDL ([id number]), Sent on: Sent Future Order: Lab Order TSH with Reflex FT4 ([id number]), Sent on: Sent Future Order: Lab Order Comprehe nsive Metabolic (CMP) ([id number]), Sent on: Sent Future Order: Lab Order UA- Dips tick (office Lab) ([id number]), Collected on: Ordered Future Order: Lab Order Lipid Pa sherwin ([id number]), Sent on: Sent Future Order: Lab Order Vitamin D, 25-Hydroxy ([id number]), Sent on: Sent Future Order: Lab Order Comprehe nsive Metabolic (CMP) ([id number]), Sent on: Sent History Of Present Illness [...] the L scapular region. She saw her daycare provider and has been advised to use Sarna. [...] no changes made. Medical Management Patient prese [facility] today for a Pre op Exam02/12 R [...] today for a TLC F/U. /- 144/92, 111/36243/93993/100 29982/96 147/58012/91 119/81790/92 132/74 22654/95Hypertension p atient states that the blood pressure [...] had recent bone density by her new nozzle tender Dr. Jorden Mclaughlin. T score was -1.8. [...] if average greater than 130/80 or less tsok696/60. Follow low salt diet and exercise regularly. [...] if average greater than 130/80 or less boqu603/60. Follow low salt diet and exercise regularly. [...] if average greater than 130/80 or less fkgp809/60. Follow low salt diet and exercise regularly. [...] if average greater than 130/80 or less fckc692/60. Follow low salt diet and exercise regularly. [...] if average greater than 130/80 or less hoob016/60. Follow low salt diet and exercise regularly. [...] if average greater than 130/80 or less obzj657/60. Follow low salt diet and exercise regularly. [...] if average greater than 130/80 or less sfkd979/60. Follow low salt diet and exercise regularly. [...] if average greater than 130/80 or less kody907/60. Follow low salt diet and exercise regularly. Related to Essential hypertension Prescribed activity/ exercise education Related to Body mass index (BMI) 36.0-36.9, adult Dietary management e ducation, guidance, and counseling Related to Body mass index (BMI) 36.0-36.9, adult Please monitor your blood pressure daily. Call if average greater than 130/80 or less ldjv562/60. Follow low salt diet and exercise regularly. Related to Essential hypertension Giving encouragement to exercise Related to Body mass index (BMI) 36.0-36.9, adult Dietary management e ducation, guidance, and counseling Related to Body mass index (BMI) 36.0-36.9, adult Please monitor your blood pressure daily. Call if average greater than 130/80 or less gybf067/60. Follow low salt diet and exercise regularly. [...] if average greater than 130/80 or less jqnr813/60. Follow low salt diet and exercise regularly. Related to Essential hypertension Avoid - citrus, varinder to-based, fried, spicy food, caffeine, etcSit up for at least 45 min following meals. Related to Gastroesophageal reflux disease without esophagitis Exercise promotion: strength training Related to Body [...] if average greater than 130/80 or less srma396/60. Follow low salt diet and exercise regularly. [...] if average greater than 130/80 or less ratx204/60. Follow low salt diet and exercise regularly. [...] if average greater than 130/80 or less kkpi951/60. Follow low salt diet and exercise regularly. [...] if average greater than 130/80 or less zhot405/60. Follow low salt diet and exercise regularly. [...]
--- OUTSIDE RECORDS SUMMARY | 2024-06-17 18:08 | XMS_ITS | Patient Health Summary ---
Author Organization [facility] Address [address] [place] [address] Care Team Providers Care Disease Education Specialist Name Role Phone Unavailable Primary Care Provider Unavailabl e Note from [facility],non-owned Affiliates and Associated Physician Practices is amultiple site organization consisting of ambulatory clinics and hospital sitesin [place], [place], [place] and [place]. This disclosure is being madepursuant to the Care Everywhere program and may not contain all information available regarding this patient. Last updated 17.[facility] Social History Tobacco Use Types Packs/Day Years Used Date Smoking Tobacco: Never Assessed Sex and Gender Information Value Date Recorded Sex Assigned at Not on file Gender Identity Not on file Sexual Orientation Not on file Procedures * DERMATOPATHOLOGY(Performed 08/25/2020) Results * DERMATOPATHOLOGY (08/25/2020 3:33 AM CDT) Case Report Dermatopathology Report Case: [id number] Authorizing Provider: Freya Rosa MD Collected: 08/25/2020 03:33 AM Ordering Location: [facility] DermPath Lab Received: 08/27/2020 06:08 AM Pathologist: Rissa Chavis MD Specimen: Skin, right evangelical 1 4:11 PM CDT DERMATOPATHOLOGY LABORATORY Final Diagnosis Specimen A. SKIN, right evangelical: BENIGN VERRUCOUS KERATOSIS, INFLAMED (L82.1) 4:11 PM CDT DERMATOPATHOLOGY LABORATORY Clinical History HAK R/O SCC. 1 4:11 PM CDT DERMATOPATHOLOGY LABORATORY Gross Description Specimen A: Received is one formalin filled container labeled with the patient's name and designated right evangelical. The specimen consists of a shave biopsy measuring 3c1p8gq. Jar 0. 1 4:11 PM CDT DERMATOPATHOLOGY LABORATORY Microscopic Description Specimen A. SKIN, right evangelical: Sections show hyperkeratosis, papillomatosis, hypergranulosis, and acanthosis. Inflammatory cells are present within the dermis. These histological findings can be seen in a verruca vulgaris or a seborrheic keratosis. 1 4:11 PM CDT DERMATOPATHOLOGY LABORATORY Disclaimer An external and internal positive and negative controls are appropriate for the histochemical, immunohistochemical and immunofluorescence stain(s) in this case (if any), except where stated explicitly. The performance characteristics of the stain(s) cited in this report were developed and its performance characteristic determined by the Dermatopathology Laboratory at [facility], directed by Dr. Houston Easton. These tests need not be, and therefore are not, approved by the [place] Food and Drug Administration. The tests are used for clinical purposes. Billing Codes Specimen Charges Stain Charges 71960 1 1 4:11 PM CDT DERMATOPATHOLOGY LABORATORY Embedded Images 1 4:11 PM CDT DERMATOPATHOLOGY LABORATORY Pathology/Cytolo gy TISSUE SPECIMEN FROM SKIN / Unknown 08/25/2020 3:33 AM CDT 08/27/2020 6:08 AM CDT Freya Rosa MD LAB - PATHOLOGY/CYTO LOGY ORDERABLES DERMATOPATHOLOGY LABORATORY [facility] - Department of Dermatology [address], [address] [phone]
--- OUTSIDE RECORDS SUMMARY | 2024-06-17 18:08 | XMS_ITS | Clinical Summary ---
Author Organization [facility] Address [address] [place] [address] Care Team Providers Care Apprentice Architect Name Role Phone Unavailable Primary Care Provider Unavailabl e Source Comments [facility],non-owned Affiliates and Associated Physician Practices is amultiple site organization consisting of ambulatory clinics and hospital sitesin [place], [place], [place] and [place]. This disclosure is being madepursuant to the Care Everywhere program and may not contain all information available regarding this patient. Last updated 17.[facility] Social History Tobacco Use Types Packs/Day Years [...] LIPID TESTING 1957 MAMMOGRAM 1957 MEDICARE AWV 12 MONTHS 1957 HEPATITIS C SCREENING 12/30/1974 DTAP/TDAP/TD VACCINES (1 - Tdap) 01/04/1976 PNEUMOCOCCAL VACCINE 50+ (1 of 1 - PCV) 2007 ZOSTER VACCINE (1 of 2) 2007 COVID-19 VACCINE ( - 2023-2 5 season) 2023 INFLUENZA VACCINE (#1) 2023 DEPRESSION SCREENING 04/10/2024 Respiratory Syncytial Virus (RSV) Vaccine Pt: or [...] patient's age to complete this topic MENINGOCOCCAL (Group B) VACCINE Aged Out No longer eligible based on patient's age to complete this topic MENINGOCOCCAL VACCINE Aged Out No debi karen eligible based on patient's age to complete this topic
--- OUTSIDE RECORDS SUMMARY | 2024-06-17 18:08 | XMS_ITS | Continuity of Care Document ---
Author Organization [facility] Address [address] [place] [address] Phone Care Team Providers Care Packing And Shipping Clerk Name Role Phone Dayron Leni TORRES Unavailable [...] OFFICE/OUTPA TIENT VISIT EST [facility], [address] [facility] [address], [address], [place] tel:[phone] [facility] Pain in right kneeChondromal acia of right patellofemoral jointBody mass index [BMI] 36.0-36.9, adultPrimary osteoarthritis of right knee 1 Dayron Farrar. [address] [facility] [address] [address], [place], [address]. tel:[phone] OFFICE/OUTPA TIENT VISIT EST [facility], [address] [address], [place], [address], [place] tel:[phone] [facility] Body mass index [BMI] 34.0-34.9, adultChondroma lacia of right patellofemoral jointPain in right knee Feb-1 - 1 L'Hommedieu Coffey. [address] [facility], [place], [place], [address]. tel:[phone] [facility], [address] [address], [place], [address], [place] tel:[phone] [facility] Unspecified internal derangement of right knee Feb-1 0- 1 No Information Referring Provider: Antony Miles'Jiemedie u, [address] [facility] [address] [address], [place], [address] . tel:[phone] [facility], [address] [address], [place], [address], [place] tel:[phone] [facility] Internal derangement of right knee Feb-0 5- 1 L'Hommedieu Coffey. [address] [facility] [address], [place], [place], [address]. tel:[phone] [facility], [address] [address], [place], [address], [place] tel:[phone] [facility] Internal derangement of right knee Feb-0 5-202 1 L'Hommedieu Coffey. [address] [facility], [place], [place], [address]. tel:[phone] [facility], [address] [address], [place], [address], [place] tel:[phone] [facility] Internal derangement of right knee Feb-0 4-202 1 L'Hommedieu Coffey. [address], [place], [place], [address]. tel:[phone] OFFICE/OUTPA TIENT VISIT EST [facility], [address], [address], [place] tel:[phone] [facility] Body mass index (BMI) 34.0-34.9, adultPrimary osteoarthritis of right kneeInternal derangement of right knee Sep- 0 Dayron Farrar. [address] [facility] [address], [place], [address]. tel:[phone] OFFICE/OUTPA TIENT VISIT EST [facility], [address], [address], [place] tel:[phone] [facility] Pain in right kneeBody mass index (BMI) 34.0-34.9, adultInternal derangement of right kneePrimary osteoarthritis of right knee Sep- 0 L'Lang Barretts. [address] [place], [place], [address]. tel:[phone] OFFICE/OUTPA TIENT VISIT EST [facility], [address], [address], [place] tel:[phone] [facility] Pain in left kneePrimary osteoarthritis of left kneeBody mass index (BMI) 32.0-32.9, adult Fe-04 11- 9 L'Troyeu Coffey. [address] [place], [place], [address]. tel:[phone] OFFICE/OUTPA TIENT VISIT EST [facility], [address], [address], [place] tel:[phone] [facility] My back and buttock hurt alot (chief complaint) Body mass index (BMI) 32.0-32.9, adultLow back pain Nelson-2 8 Mera Bender. [address] [place], [place], [address]. tel:[phone] OFFICE/OUTPA TIENT VISIT EST [facility], [address] [address], [place], [address], [place] tel:[phone] [facility] Left knee pain, unspecified chronicityRigh t ankle pain, unspecified chronicitySpra in of left knee, unspecified ligament, initial encounterSprai n of right ankle, unspecified ligament, initial encounterBody mass index (BMI) 32.0-32.9, adult Feb- 7 Shansean Estevezesh. [address] [facility], [place], [place], [address]. tel:[phone] [facility], [address] [address], [place], [address], [place] tel:[phone] [facility] Trigger finger (acquired)Carp al Tunnel Syndrome 5 Jordon Gordillo. [address] [place], [place], [address]. tel:[phone] [facility], [address] [address], [place], [address], [place] tel:[phone] [facility] Aftercare following surgeryCarpal Tunnel SyndromeTrigge r finger (acquired) 5 Jordon Gordillo. [address] [place], [place], [address]. tel:[phone] [facility], [address], [address], [place] tel:[phone] [facility] Aftercare following surgeryTrigger finger (acquired)Carp al Tunnel Syndrome 5 Jordon Gordillo. [address] [place], [place], [address]. tel:[phone] [facility], [address], [address], [place] tel:[phone] [facility] Aftercare following surgeryCarpal Tunnel SyndromeTrigge r finger (acquired) 5 Jordon Gordillo. [address] [place], [place], [address]. tel:[phone] OFFICE/OUTPA TIENT VISIT EST [facility], [address] [address], [place], [address], [place] tel:[phone] [facility] Trigger finger (acquired)Carp al Tunnel Syndrome 5 Jordon Gordillo. [address] [facility], [place], [place], [address]. tel:[phone] OFFICE/OUTPA TIENT VISIT EST [facility], [address] [address], [place], [address], [place] tel:[phone] [facility] Left knee pain (chief complaint) Osteoarthrosis , unspecified whether generalized or localized, involving lower legPain in joint involving lower leg 4 Saúl Garcia. [address] [address], [place], [place], [address]. tel:[phone] Referring Provider: Lisa Vazquez, [address], [place], [address]. tel:[phone] OFFICE/OUTPA TIENT VISIT EST [facility], [address] [address], [place], [address], [place] tel:[phone] [facility] Aftercare following surgeryTrigger finger (acquired) 4 Jordon Gordillo. [address] [facility], [place], [place], [address]. tel:[phone] OFFICE/OUTPA TIENT VISIT EST [facility], [address] [address], [place], [address], [place] tel:[phone] [facility] Trigger finger (acquired)Johnathanu m tatyana of collat ligmt of unsp finger at MCP/I 4 Jordon Gordillo. [address] [facility], [place], [place], [address]. tel:[phone] OFFICE/OUTPA TIENT VISIT EST [facility], [address] [address], [place], [address], [place] tel:[phone] [facility] Traum rupt of collat ligmt of unsp finger at MCP/I 3 Jordon Gordillo. [address] , [place], [place], [address]. tel:[phone] OFFICE/OUTPA TIENT VISIT EST [facility], [address] [facility] [address], [place], [address], [place] tel:[phone] [facility] Trigger finger (acquired) 3 Jordon Gordillo. [address] , [place], [place], [address]. tel:[phone] OFFICE/OUTPA TIENT VISIT EST [facility], [address] [address], [place], [address], [place] tel:[phone] [facility] Osteoarthrosis , unspecified whether generalized or localized, involving lower legPain in joint involving lower leg 3 Peterson Evans. [address], [place], [place], [address]. tel:[phone] Referring Provider: Lisa Vazquez, [address], [place], [address]. tel:[phone] OFFICE/OUTPA TIENT VISIT EST [facility], [address] [facility] [address], [place], [address], [place] tel:[phone] [facility] Other internal derangement of knee 3 Peterson Evans. [address], [place], [place], [address]. tel:[phone] Referring Provider: Lisa Vazquez, [address], [place], [address]. tel:[phone] OFFICE/OUTPA TIENT VISIT EST [facility], [address] [facility] [address], [place], [address], [place] tel:[phone] [facility] Carpal Tunnel Syndrome 3 Jordon Gordillo. [address] [facility] [address], [place], [place], [address]. tel:[phone] OFFICE/OUTPA TIENT VISIT EST [facility], [address] [address], [place], [address], [place] tel:[phone] [facility] Pain in joint involving shoulder regionCarpal Tunnel Syndrome 3 Horacebernardamarquez Gordillo. [address] , [place], [place], [address]. tel:[phone] OFFICE/OUTPA TIENT VISIT EST [facility], [address] [address], [place], [address], [place] tel:[phone] [facility] Pain in joint involving shoulder region 3 Jordon Duy. [address] [facility], [place], [place], [address]. tel:[phone] [facility], [address], [address], [place] tel:[phone] [facility] left knee pain (chief complaint) Chondromalacia of patellaTear of medial cartilage or meniscus of knee, currentS/P arthroscopic knee surgery 3 Param Ankit. [address] [facility], [place], [place], [address]. tel:[phone] Referring Provider: [address], [place], [address]. tel:[phone] [facility], [address], [address], [place] tel:[phone] [facility] Tear of medial cartilage or meniscus of knee, current 2 Param Ankit. [address] [facility], [place], [place], [address]. tel:[phone] Referring Provider: [address], [place], [address]. tel:[phone] [facility], [address], [address], [place] tel:[phone] [facility] left knee pain (chief complaint) Tear of medial cartilage or meniscus of knee, currentOsteoar throsis, localized, primary, involving lower legTear of medial cartilage or meniscus of knee, current 2 Param Ankit. [address] [place], [place], [address]. tel:[phone] Referring Provider: Lisa Vazquez, [address], [place], [address]. tel:[phone] [facility], [address], [address], [place] tel:[phone] [facility] Other internal derangement of kneeChondromal acia of patellaChondro malacia of patella 2 Param Ankit. [address] [place], [place], [address]. tel:[phone] Referring Provider: Lisa Vazquez, [address], [place], [address]. tel:[phone] OFFICE/OUTPA TIENT VISIT EST [facility], [address], [address], [place] tel:[phone] [facility] Pain in joint involving shoulder regionCarpal Tunnel Syndrome 2 Jordon Gordillo. [address] [place], [place], [address]. tel:[phone] [facility], [address], [address], [place] tel:[phone] [facility] No Information 2 Amando Xiong. [address] [place], [place], [address]. tel:[phone] [facility], [address], [address], [place] tel:[phone] [facility] Carpal Tunnel SyndromeBrachi al neuritis or radiculitis nos 2 Jordon Gordillo. [address] [place], [place], [address]. tel:[phone] Family History Family Member Type Diagnosis Age [...] h) Payers Payer name Insurance type Covered green party ID Cece grubbs(s) Medicare E2 [place] [id number] [facility] [place] [id number] Social History Type Description Quantity Date Captured [...] to Body mass index [BMI] 36.0-36.9, adult Giving encouragement to exercise Related to Body mass index [BMI] 34.0-34.9, adult Discussed treatment options Rela angelo [...]
--- OUTSIDE RECORDS SUMMARY | 2024-06-17 18:08 | XMS_ITS | Data Portability ---
Author Organization [facility] Address [address] [place] [address] Care Team Providers Care Automatic Drilling Machine Operator Name Role Phone ANAIAFIA MARTINES Referring Provider [phone] JOVANNA JOHNSON Referring Provider Assessment No assessment [...] Time 10/12/2020 Sleep Study completed Piero Ray [facility] 10/14/19 21 18:23:39 Imaging Results None recorded. [...] Updated DateTime 10/12/2020 157.48 cm 36 kg/m2 46392.7 g Yu Swartz [facility] - [facility] 10/12/2020 14:35:51 Social History None recorded. Functional Status None recorded. Mental Status None recorded. Family History Nothing Reported. Medical History No medical history recorded. Gynecological HistoryNo gynecological history recorded. Obstetrics History GPAL:G 0 P 0 0 0 0 Past Encounters Encounter ID Performer Location Encounter Start Date Encounter Closed Date Diagnosis/Indication Diagnosis SNOMED-CT Code Diagnosis ICD10 Code Diagnosis Note [id number] Javed Regan MD [facility] [id number] [facility] (32) [address] [place] [address] 10/12/2020 14:14:45 10/13/2020 17:25:18 Obstructive sleep apnea of adult 7367161917 103 G47.33 Health Concerns Section Related Observation LastModified by Organization Detai ls LastModified Time None Recorded Concern Status LastModified by Organization Details LastModified Time None Recorded Advance Directives Directive None Recorded Payers Encounter Date Sequence Insurance Name Policy Number Policy Lo Covered Member ID Lo Member ID Guarantor Name 10/12/2020 2 [employer] (MEDICARE SUPPLEMENT) Rosetta Perez [id number] Kenna Perez 10/12/2020 1 [place] Rosetta Galicia Merrill [id number] Kenna Merrill Notes Date Note Type Note Provider Name [...] was here as well. Javed Regan MD [facility] [id number] [address] [place] [address], [place], [address] [place] [facility] 10/14/2020 16:17:36 OBGyn Episode No OBEpisode recorded.
--- OUTSIDE RECORDS SUMMARY | 2024-06-17 18:08 | XMS_ITS | Continuity of Care Document ---
Author Organization [facility] Address [address] [place] [address] Phone Care Team Providers Care Dough Molder Name Role Phone Casimiro Wong DO Unavailable Unavailable Allergies, Adverse Reactions, Alerts Substance Reaction Status Criticality Penicillins Rash Active No Information Medications Medication Instructions Dosage Effective Dates (start - stop) Status Comments CELECOXIB 200 MG CAPSULE TAKE 1 CAPSULE BY MOUTH EVERY DAY - Active metoprolol [...] CAPSULE BY MOUTH EVERY DAY - Active levothyroxine 50 mcg tablet - Active Celebrex 200 mg capsule TAKE 1 CAPSULE B Y MOUTH EVERY DAY - No Longer Active Procedures Procedure Date Office/outpatient visit,est, mod 2024 Asp/inject major joint or bursa w/o US [...] Date Provider Providers Copied on Encounter [facility], [address], [id number], [place] tel:[phone] [facility] No Information 5 Marvin Casimiro. [address], [id number] , [place]. tel:[phone] [facility], [address] [place] [address], [id number], [place] [phone] [facility] No Information 5 Marvin Rivasew. [address] [address], [place], [place], [id number] , [place]. tel:[phone] Office/outpat ient visit,est, mod [facility], [address], [id number], [place] tel:[phone] [facility] Pain in left shoulder 5 Marvin Casimiro. [address] [place] [address], [id number] , [place]. tel:[phone] Referring Provider: Casimiro Navarro, [address] [address], [place], [address] . tel:[phone] Office/outpat ient visit,est, mod [facility], [address], [id number], [place] tel:[phone] [facility] Pain in left shoulder Nov-2 4 Marvin Kirkpatrick. [address] [place] [address], [id number] , [place]. tel:[phone] Referring Provider: Casimiro Marvin Navarro, [address], [place], [address] . tel:[phone] Office/outpat ient visit,est, mod [facility], [address], [place], [place], [id number], [place] tel:[phone] [facility] Left Arm And Shoulder Pain (chief complaint) Pain in left shoulder 4 Marvin Kirkpatrick. [address], [place], [place], [id number] , [place]. tel: [phone] Referring Provider: Casimiroviola Navarro, [address], [place], [address] . tel:[phone] Family History Family Member Type Diagnosis Age At Onset No Information Immunizations Vaccine Date Status Comments Pneumo (2 yrs or older)(PPV) administered Source: Source Unspecified influenza, injectable, quadrivalent, (3 years or older) administered Source: Source Unspecified Payers Payer name Insurance type Covered constitution party ID Authoriza tion(s) [place] Part B MB [id number] AFLAC [id number] Social History Type Description Quantity Date Captured Comments Sex Female Smoking Status No Information Chief Complaint And Reason For Visit No Information Reason For Referral Reason For Referral No Information Plan Of Treatment Date Type Action Status Referral Ordered: MRI Upper extr joint, w/o contrast LT shoulder ordered Referral Ordered: X-ray exam shoulder complete, minimum 2 views LT shoulder ordered History Of Present Illness Encounter Date Complaint History Of Prese nt Illness Left Arm And Shoulder Pain Functional Status Date Functional Assessmen t No Information Instructions Date Instruction Additional Infor mation No Information Assessments Type Assessment Date No Information Patient Care Teams Name Effective Dates (start - stop) Status Members No Information
--- OUTSIDE RECORDS SUMMARY | 2024-06-17 18:08 | XMS_ITS | Referral Summary ---
Author Organization [facility] Address [address] [place] [address] Care Team Providers Care Political Researcher Name Role Phone Unavailable Primary Care Provider Unavailabl e Source Comments [facility],non-owned Affiliates and Associated Physician Practices is amultiple site organization consisting of ambulatory clinics and hospital sitesin [place], [place], [place] and [place]. This disclosure is being madepursuant to the Care Everywhere program and may not contain all information available regarding this patient. Last updated 17.[facility] [employer] Social History Tobacco Use Types Packs/Day Years Used Date Smoking Tobacco: Never Assessed Sex and Gender Information Value Date Recorded Sex Assigned at Not on file Gender Identity Not on file Sexual Orientation Not on file Plan of Treatment Not on file
--- OUTSIDE RECORDS SUMMARY | 2024-06-17 18:08 | XMS_ITS | Encounter Summary ---
Author Organization [facility] Address [address] [place] [address] Care Team Providers Care Jet Man Name Role Phone Unavailable Primary Care Provider Unavailabl e Encounter Details Date Type Department Care Team (Late st Contact Info) Description 08/27/2020 Lab Requisition [facility] [address] [place] [id number] [place] [address] [address] [place] [address] Social History Tobacco Use Types [...] AM CDT) Case Report Dermatopathology Report Case: [id number] Authorizing Provider: Freya Rosa MD Collected: 08/25/2020 03:33 AM Ordering Location: [facility] Received: 08/27/2020 06:08 AM Pathologist: Rissa Chavis MD Specimen: Skin, right yazdanism 1 4:11 PM CDT DERMATOPATHOLOGY LABORATORY Final Diagnosis Specimen A. SKIN, right yazdanism: BENIGN VERRUCOUS KERATOSIS, INFLAMED (L82.1) 4:11 PM CDT DERMATOPATHOLOGY LABORATORY Clinical History HAK R/O SCC. 4:11 PM CDT DERMATOPATHOLOGY LABORATORY Gross Description Specimen A: Received is one formalin filled container labeled with the patient's name and designated right yazdanism. The specimen consists of a shave biopsy measuring [id number]. Jar 0. 4:11 PM CDT DERMATOPATHOLOGY LABORATORY Microscopic Description Specimen A. SKIN, right yazdanism: Sections show hyperkeratosis, papillomatosis, hypergranulosis, and acanthosis. Inflammatory cells are present within the dermis. These histological findings can be seen in a verruca vulgaris or a seborrheic keratosis. 4:11 PM CDT DERMATOPATHOLOGY LABORATORY Disclaimer An external and internal positive and negative controls are appropriate for the histochemical, immunohistochemical and immunofluorescence stain(s) in this case (if any), except where stated explicitly. The performance characteristics of the stain(s) cited in this report were developed and its performance characteristic determined by the Dermatopathology Laboratory at [facility], directed by Dr. Houston Easton. These tests need not be, and therefore are not, approved by the [place] Food and Drug Administration. The tests are used for clinical purposes. Billing Codes Specimen Charges Stain Charges 48933 1 4:11 PM CDT DERMATOPATHOLOGY LABORATORY Embedded Images 4:11 PM CDT DERMATOPATHOLOGY LABORATORY Pathology/Cytolo gy TISSUE SPECIMEN FROM SKIN / Unknown 08/25/2020 3:33 AM CDT 08/27/2020 6:08 AM CDT Freya Rosa MD LAB - PATHOLOGY/CYTO LOGY ORDERABLES DERMATOPATHOLOGY LABORATORY [facility] - Department of Dermatology [address] [phone] documented in this encounter Visit Diagnoses Not on filedocumented in this encounter
== END 2024-06-17 15:29 | disposition home or self-care (01) ==
PROVIDERS: PCP Internal Medicine; Visit Provider Nurse Practitioner Family
DX: R91.8 Other nonspecific abnormal finding of lung field (principal)
CPT/HCPCS: 71250

== ENCOUNTER 2025-01-14 16:13 | Outpatient (CLI) | payer MEDICARE, SELFPAY ==
--- NOTE | ~2025-01-14 | MM_ITS ---
EXAMINATION: MM screening spencer BI w bailey HISTORY: Screening TECHNIQUE: Craniocaudal and mediolateral oblique 3-D tomosynthesis images were obtained and synthetic 2-D images were generated. CAD analysis was submitted and interpreted. COMPARISON: Comparison to multiple prior studies sequentially, with oldest reviewed study dated , 12/12/2018 BREAST PARENCHYMAL COMPOSITION: There are scattered areas of fibroglandular density. FINDINGS: There is no evidence of suspicious mass, calcification, or architectural distortion to suggest malignancy in either breast. IMPRESSION: 1. No mammographic evidence of malignancy. 2. Recommend routine screening mammography in one year. BI-RADS Category 1: Negative Reviewed, dictated and finalized at location B.
--- OUTSIDE RECORDS SUMMARY | 2025-01-14 16:41 | XMS_ITS | Clinical Summary ---
Author Organization [facility] Address [address] [place] [address] Care Team Providers Care Assorter Laundry Name Role Phone Unavailable Primary Care Provider Unavailabl e Source Comments [facility],non-owned Affiliates and Associated Physician Practices is amultiple site organization consisting of ambulatory clinics and hospital sitesin [place], [place], [place] and [place]. This disclosure is being madepursuant to the Care Everywhere program and may not contain all information available regarding this patient. Last updated 17.[facility] Social History Tobacco Use Types Packs/Day Years Used Date Smoking Tobacco: Never Assessed Comments Unknown Sex and Gender Information Value Date Recorded Sex Assigned at Not on file Legal Sex Female 4:09 PM CDT Gender Identity Not on file Sexual Orientation [...] SCREENING 1955 LIPID TESTING 1955 MAMMOGRAM 1955 HEPATITIS C SCREENING 12/30/1974 DTAP/TDAP/TD VACCINES (1 - Tdap) 01/04/1976 PNEUMOCOCCAL VACCINE 50+ (1 of 1 - PCV) 2007 ZOSTER VACCINE (1 of 2) 2007 DEPRESSION SCREENING 04/10/2024 COVID-19 VACCINE (1 - 2023-2 5 season) 2024 INFLUENZA VACCINE (#1) 2024 Respiratory Syncytial Virus (RSV) Vaccine Pt: or [...] to complete this topic MENINGOCOCCAL (Group B) VACC INE SHARED DECISION-MAKING Aged Out No longer eligibl e based on patient's age to complete this topic MENINGOCOCCAL GROUPS A/C/Y/W VACCINE Aged Out No longer eligible b ased on patient's age to complete this topic Insurance MEDICARE [facility]
--- OUTSIDE RECORDS SUMMARY | 2025-01-14 16:41 | XMS_ITS | Encounter Summary ---
Author Organization [facility] Address [address] [place] [address] Care Team Providers Care Labeling Associate Name Role Phone Unavailable Primary Care Provider Unavailabl e Encounter Details Date Type Department Care Team (Late st Contact Info) Description 08/27/2020 Lab Requisition [facility] [address] [place] [id number] [place] [address] [place] [address] Social History Tobacco Use Types [...] AM CDT) Case Report Dermatopathology Report Case: [id number] Authorizing Provider: Freya Rosa MD Collected: 08/25/2020 03:33 AM Ordering Location: [facility] Received: 08/27/2020 06:08 AM Pathologist: Rissa Chavis MD Specimen: Skin, right presybeterian 1 4:11 PM CDT DERMATOPATHOLOGY LABORATORY Final Diagnosis Specimen A. SKIN, right presybeterian: BENIGN VERRUCOUS KERATOSIS, INFLAMED (L82.1) 4:11 PM CDT DERMATOPATHOLOGY LABORATORY at 1611 CDT Clinical History HAK R/O SCC. 4:11 PM CDT DERMATOPATHOLOGY LABORATORY Gross Description Specimen A: Received is one formalin filled container labeled with the patient's name and designated right presybeterian. The specimen consists of a shave biopsy measuring [id number]. Jar 0. 4:11 PM CDT DERMATOPATHOLOGY LABORATORY Microscopic Description Specimen A. SKIN, right presybeterian: Sections show hyperkeratosis, papillomatosis, hypergranulosis, and acanthosis. [...] characteristic determined by the Dermatopathology Laboratory at [facility], directed by Dr. Houston Easton. These tests need not be, and therefore are not, approved by the [place] Food and Drug Administration. The tests are used for clinical purposes. Billing Codes Specimen Charges Stain Charges 29359 1 1 4:11 PM CDT DERMATOPATHOLOGY LABORATORY Embedded Images 4:11 PM CDT DERMATOPATHOLOGY LABORATORY Pathology/Cytolo gy TISSUE SPECIMEN FROM SKIN / Unknown 08/25/2020 3:33 AM CDT 08/27/2020 6:08 AM CDT us Freya Rosa MD LAB - PATHOLOGY/CYTOLOGY DEB FERRIS Final Result DERMATOPATHOLOGY LABORATORY [facility] - Department of Dermatology [address] [phone] documented in this encounter Visit Diagnoses Not on filedocumented in this encounter
== END 2025-01-14 16:14 | disposition home or self-care (01) ==
LOC: ANHFOHIMG 16:14
PROVIDERS: PCP Internal Medicine; Visit Provider Obstetrics & Gynecology
DX: Z12.31 Encounter for screening mammogram for malignant neoplasm of breast (principal)
CPT/HCPCS: 77063; 77067

== ENCOUNTER 2025-03-19 09:30 | Outpatient (CLI) | payer MEDICARE, SELFPAY ==
--- NOTE | ~2025-03-19 | CT_ITS ---
EXAMINATION: CT lung screening DATE: 03/19/2025 09:50 INDICATION: Z87.891 - Personal history of nicotine dependence TECHNIQUE: Computed tomography (CT) of the chest was performed without intravenous contrast. Additional 3D reconstructions utilizing coronal maximum intensity projection (MIP) were performed. Automated exposure control and iterative reconstruction technique were employed. The dose-length product was 16 0.08 mGy-cm. COMPARISON: Chest CT dated 06/17/2024 and 03/12/2024 FINDINGS: There are numerous small pulmonary nodules in the bilateral upper lungs measuring up to maximal 4 mm. There is an unchanged 6 mm spiculated nodule in the right upper lobe. No significant change since 03/12/2024 in the previously noted 9 mm subsolid nodules in the right lower lobe with solid component me asuring up to maximal 7 mm diameter and small surrounding groundglass opacity. No pneumonia, pulmonary edema or pleural effusion. Heart size is normal. No pericardial effusion. Thoracic aorta is normal in caliber. No pathologically enlarged thoracic lymphadenopathy. Visualized upper abdomen is unremarkable. Moderate to severe lower thoracic spondylosis. IMPRESSION: 1. Lung-RADS category 2: Benign appearance or behavior. Continue annual screening with noncontrast low-dose chest CT in 12 months. Reviewed, dictated and finalized at location A. TRIMMER IMPRESSION: 1. Lung-RADS category 2: Benign appearance or behavior. Continue annual screeni ng with noncontrast low-dose chest CT in 12 months.
== END 2025-03-19 09:31 | disposition home or self-care (01) ==
PROVIDERS: PCP Internal Medicine; Visit Provider Nurse Practitioner Family
DX: Z12.2 Encounter for screening for malignant neoplasm of respiratory organs (principal); Z87.891 Personal history of nicotine dependence
CPT/HCPCS: 71271